=== PATIENT | female | born 1985 | race Caucasian/White ===

== ENCOUNTER → 2018-08-01 17:31 | Outpatient (CLI) | payer OTHER, MEDICAID, SELFPAY | PROVIDERS: Family Provider Family Medicine; PCP Family Medicine; Visit Provider Family Medicine | DX: L02.215 Cutaneous abscess of perineum (principal) | CPT/HCPCS: 87070; 87075; 87077; 87186; 87205 ==

== ENCOUNTER 2018-10-11 08:32 | Emergency (ER) | payer OTHER, MEDICAID, SELFPAY ==
[2018-10-11 08:35] VITALS: BP 138/80; PULSE 90; RESP 18; TEMP 36.9; O2SAT 97; BMI 45.3
--- NOTE | 2018-10-11 09:12 | ED.DIZZY ---
HPI - Dizziness General Chief Complaint: Dizziness Stated Complaint: DEHYDRATION/DIZZINESS/CAN'T EAT Time Seen by Provider: 10/11/18 08:48 Source: patient Mode of arrival: ambulatory Limitations: no limitations History of Present Illness HPI Narrative: 33-year-old female here for evaluation of dizziness. She states that all of her symptoms started on Wednesday. States she did not eat or drink all that much. Things have c continued since then. No headaches. Has not tried anything for symptoms prior to arrival. States it is not a vertigo sensation. She does have a history orthostatic hypotension. Related Data Home Medications Medication Instructions Recorded Confirmed multivitamin capsule 1 cap PO DAILY 07/25/18 10/11/18 ranitidine 75 mg tablet 75 mg PO DAILY PRN tab 08/01/18 10/11/18 lamotrigine [Lamictal] 200 mg PO DAILY 10/11/18 10/11/18 Previous Rx's Medication Instructions Recorded methylphenidate ER 18 mg 18 mg PO QAM #30 tab 09/23/18 tablet,extended release 24 hr Allergies Allergy/AdvReac Type Severity Reaction Status Date / Time amoxicillin [From AUGMENTIN] Allergy Unknown DIARRHEA Verified 10/11/18 08:45 AND STOMACH CRAMPS clavulanic acid Allergy Unknown DIARRHEA Verified 10/11/18 08:45 [From AUGMENTIN] AND STOMACH CRAMPS codeine Allergy Unknown Verified 10/11/18 08:45 cyclobenzaprine Allergy Unknown Verified 10/11/18 08:45 [From FLEXERIL] Review of Systems Constitutional Reports body ache(s), Denies chills, Reports fatigue, Denies frequent falls, Denies headache(s), Reports lethargy, Reports malaise, Reports poor appetite and Reports weakness ENT Ears, Nose, Mouth, and Throat: Denies vertigo, Reports dizziness and Denies headache(s) Cardiovascular Denies chest pain, Denies palpitations and Denies dyspnea Respiratory Denies dyspnea Gastrointestinal Gastrointestinal: Denies abdominal pain, Denies nausea and Denies vomiting Genitourinary Denies dysuria Musculoskeletal Denies myalgias and Denies arthralgias Integumentary/Breasts Denies rash Neurologic Denies behavioral changes, Denies confusion, Denies vertigo, Reports dizziness, Denies frequent falls, Denies headache(s), Denies focal weakness and Reports weakness Psychiatric Denies behavioral changes and Denies confusion Endocrine Reports fatigue and Denies palpitations Hematologic/Lymphatic Denies easy bleeding and Denies easy bruising PFSH Social History Smoking Status: Former smoker Tobacco: How many years used: 2 second hand exposure: No alcohol intake: current substance use type: marijuana Exam Initial Vital Signs Initial Vital Signs: Vital Signs Temperature 98.5 F 10/11/18 08:35 Pulse Rate 90 10/11/18 08:35 Respiratory Rate 18 10/11/18 08:35 Blood Pressure 138/80 10/11/18 08:35 Pulse Oximetry 97 10/11/18 08:35 Const General: cooperative, healthy appearing, comfortable, well developed, well groomed and No acute distress Orientation: alert, awake and oriented x3 HENMT Head: normal to inspection and normocephalic Ears: TM's normal bilaterally Resp Effort & Inspection: normal respiratory effort Auscultation: clear to auscultation bilaterally Cardio Rate: regular rate Rhythm: regular rhythm GI Inspection: non-distended Palpation: soft and No firm Skin Lesions: no lesions Rashes: no rashes Neuro General: alert, awake and oriented x3 Cognition: normal cognition Speech: speech normal Motor: muscle tone normal throughout Sensory Exam: no sensory deficits noted Extrem General: normal to inspection and capillary refill normal Psych Appearance: grossly normal and well kempt Course Orders Ordered: ED Orders 10/11/18 08:46 EKG-12 Lead Routine 10/11/18 09:45 Basic Metabolic Panel Stat Complete Blood Count AUTO DIFF Stat Discontinued Medications Sodium Chloride (Normal Saline 0.9%) 1,000 mls @ 1,000 mls/hr IV BOLUS ONE Stop: 10/11/18 09:47 Last Infusion: 10/11/18 11:26 Dose: 0 mls/hr Admin: 10/11/18 10:15 Dose: 1,000 mls/hr Vital Signs - 8 hr 10/11/18 08:35 10/11/18 10:00 10/11/18 11:00 Temperature 98.5 F Pulse Rate 90 66 67 Respiratory Rate 18 16 17 Blood Pressure 138/80 Blood Pressure [Left Arm] 98/62 95/74 Pulse Oximetry 97 99 99 10/11/18 11:58 Temperature Pulse Rate 77 Respiratory Rate 17 Blood Pressure 120/69 Blood Pressure [Left Arm] Pulse Oximetry 96 MDM - Dizziness Lab Data Attestation: I reviewed the patient's lab results. Result diagrams: 10/11/18 09:45 10/11/18 09:45 Lab Results 10/11/18 10/11/18 Range/Units 09:45 09:45 WBC 5.0 (4.5-11.0) X10^3/uL RBC 5.01 (4.0-5.2) X10^6/uL Hgb 13.8 (12.0-16.0) g/dL Hct 41.9 (36-46) % MCV 83.6 (80-100) fL MCH 27.5 (26-34) PG MCHC 32.9 (30-36) % RDW 13.7 (11.6-14.8) % Plt Count 215 (150-400) X10^3/uL Neut % (Auto) 58.2 (50-75) % Lymph % (Auto) 30.9 (25-40) % [place] % (Auto) 6.9 (3-14) % Eos % (Auto) 3.2 (2-4) % Baso % (Auto) 0.8 (0-2) % Neut # (Auto) 2900 (2047-3669) /uL Lymph # (Auto) 1600 (5373-8317) /uL [place] # (Auto) 300 (0-900) /uL Eos # (Auto) 200 (0-450) /uL Baso # (Auto) 0 (0-100) /uL Sodium 138 (137-145) mmol/L Potassium 3.5 (3.4-5.1) mmol/L Chloride 100 (98-107) mmol/L Carbon Dioxide 28 (22-32) mmol/L BUN 9 (7-17) mg/dL Creatinine 0.70 (0.52-1.04) mg/dL Estimated GFR > 60.0 (>60) mL/min BUN/Creatinine Ratio 12.9 (6-22) Glucose 107 H (70-100) mg/dL Calcium 8.9 (8.4-10.2) mg/dL ECG Data Attestation: I personally reviewed and interpreted this ECG as follows: Prior ECG tracings: not available for review Interpretation: Sinus rhythm Ventricular rate is 70 Occasional PVCs Normal QRS Normal QTC No ST T wave changes MDM Narrative Medical decision making narrative: Patient stated that she felt better after the fluids. Labs are unremarkable. Low suspicion for an emergent process. I do have a suspicion that her symptoms could potentially be residual from the edible marijuana that she had earlier this week. Will hold on further workup for now. Patient was given return precautions. She expressed understanding and agreement with plan. Discharge Plan Departure Patient Disposition: Home Clinical Impression: Lightheadedness Discharge Date/Time: 10/11/18 12:00 Interventions: ED Discharge Assessment Last Done: 10/11/18 11:58 Instructions: DI for Dizziness-Nonvertigo Activity Restrictions/Additional Instructions: Recommend you increase your fluid intake. Continue all of your medications. Return to the emergency department for any new or worsening symptoms Prescriptions: No Action multivitamin capsule 1 cap PO DAILY RF: 0 ranitidine HCl 75 mg tablet 75 mg PO DAILY PRN (Reason: Acid Reflux) RF: 0 methylphenidate HCl [Concerta] 18 mg tablet extended release 24hr 18 mg PO QAM Qty: 30 RF: 0 lamotrigine [Lamictal] 200 mg tablet 200 mg PO DAILY RF: 0 Referrals: Alana Tyler DO [Primary Care Provider] -
[2018-10-11 10:00] VITALS: BP 98/62; PULSE 66; RESP 16; O2SAT 99
[2018-10-11 10:02] LABS: Add Manual Diff / Slide Review NO; Basophils Absolute Auto 0 /uL (0-100); Basophils Percent Auto 0.8 % (0-2); Eosinophils Absolute Auto 200 /uL (0-450); Eosinophils Percent Auto 3.2 % (2-4); Hematocrit 41.9 % (36-46); Hemoglobin 13.8 g/dL (12.0-16.0); Lymphocytes Absolute Auto 1600 /uL (1100-4500); Lymphocytes Percent Auto 30.9 % (25-40); Mean Corpuscular HGB Conc 32.9 % (30-36); Mean Corpuscular Hemoglobin 27.5 PG (26-34); Mean Corpuscular Volume 83.6 fL (80-100); Monocytes Absolute Auto 300 /uL (0-900); Monocytes Percent Auto 6.9 % (3-14); Neutrophils Absolute Auto 2900 /uL (1500-7000); Neutrophils Percent Auto 58.2 % (50-75); Platelet Count 215 X10^3/uL (150-400); Red Blood Cell Count 5.01 X10^6/uL (4.0-5.2); Red Cell Distribution Width 13.7 % (11.6-14.8)
[2018-10-11 10:08] LABS: BUN Creatinine Ratio 12.9 (6-22); Blood Urea Nitrogen 9 mg/dL (7-17); Calcium 8.9 mg/dL (8.4-10.2); Carbon Dioxide 28 mmol/L (22-32); Chloride 100 mmol/L (98-107); Estimated Glomerular Filt Rate > 60.0 mL/min (>60); Glucose 107 mg/dL (70-100); HEMOLYSIS < 15 (0-50); Potassium 3.5 mmol/L (3.4-5.1); Sodium 138 mmol/L (137-145)
[2018-10-11] MEDS: SODIUM CHLORIDE 0.9% 1,000 ML 1000 ML IV (10:15)
[2018-10-11 11:00] VITALS: BP 95/74; PULSE 67; RESP 17; O2SAT 99
--- NOTE | 2018-10-11 11:31 | PC.NURSE ---
Recent viral symptoms including vomiting. Today no symptoms besides dizziness. Reports has not had fluids today and is probably dehydrated.
[2018-10-11 11:58] VITALS: BP 120/69; PULSE 77; RESP 17; O2SAT 96
== END 2018-10-11 12:00 | disposition home or self-care (01) ==
PROVIDERS: Emergency Provider Emergency Medicine; Family Provider Family Medicine; PCP Family Medicine
DX: R42 Dizziness and giddiness (principal)
CPT/HCPCS: 36591; 80048; 85025; 93005; 93010; 96360; 99283; 99284

== ENCOUNTER 2019-01-04 09:35 | Emergency (ER) | payer OTHER, MEDICAID, SELFPAY ==
[2019-01-04 09:45] VITALS: BP 140/77; PULSE 71; RESP 15; TEMP 36.8; O2SAT 100; BMI 41.1
--- NOTE | 2019-01-04 10:21 | ED.DIZZY ---
HPI - Dizziness General Chief Complaint: Dizziness Stated Complaint: Dizzy,Brain Fog, vision is off Time Seen by Provider: 01/04/19 10:04 Source: patient Mode of arrival: ambulatory Limitations: no limitations History of Present Illness HPI Narrative: 33-year-old female comes to the emergency department with complaint of feeling sort of dizzy almost like she might pass out. She states she did not pass out. She sort of felt like she had brain fog and had a little bit of trouble thinking. She states she has had these symptoms in the past as far as the brain fog but this lasted a little bit longer. And that her vision was sort of swimming or sort of like she could see little particles moving. Patient states that her symptoms have been improving. She states that she had them sort of on and off. She denies any fevers. She denies any new neurologic changes otherwise. She denies any chest pain or shortness of breath. She felt nauseated but that has improved, no abdominal pain. She did not vomit. No urinary issues. She typically has loose stools frequently. She states that she did try a grain free diet all last week and started consuming grains again this weekend. She states that she thinks this may have contributed symptoms started when she started eating grains over the weekend but were worse today. She does take Lamictal and Concerta, she takes these for bipolar and ADHD and states symptoms have been well controlled. She has had her tonsils and adenoids removed no other surgeries. She is supposed to see her primary care 130pm today but not for this. 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 Patient has any tobacco or alcohol. Related Data Home Medications Medication Instructions Recorded Confirmed ranitidine 75 mg tablet 75 mg PO DAILY PRN tab 08/01/18 01/04/19 Previous Rx's Medication Instructions Recorded methylphenidate ER 18 mg 18 mg PO QAM #30 tab 12/15/18 tablet,extended release 24 hr lamotrigine 200 mg tablet 200 mg PO DAILY #90 tab 01/03/19 Allergies Allergy/AdvReac Type Severity Reaction Status Date / Time amoxicillin [From AUGMENTIN] Allergy Unknown DIARRHEA Verified 01/04/19 13:27 AND STOMACH CRAMPS clavulanic acid Allergy Unknown DIARRHEA Verified 01/04/19 13:27 [From AUGMENTIN] AND STOMACH CRAMPS codeine Allergy Unknown Verified 05/22/19 13:27 cyclobenzaprine Allergy Unknown Verified 01/04/19 13:27 [From FLEXERIL] Review of Systems Review of Systems ROS Unobtainable: All systems reviewed & are unremarkable except as noted in HPI and below Constitutional Denies chills, Denies fever(s), Reports headache(s) (mild), Denies lethargy and Denies weakness Eyes Reports change in vision (swimming particles) ENT Ears, Nose, Mouth, and Throat: Denies abnormal hearing, Reports dizziness and Reports headache(s) (mild) Cardiovascular Denies chest pain, Denies diaphoresis, Denies syncope, Denies edema, Denies leg edema, Reports lightheadedness, Denies palpitations, Denies dyspnea and Denies dyspnea on exertion Respiratory Denies chest congestion, Denies dyspnea and Denies dyspnea on exertion Gastrointestinal Gastrointestinal: Denies abdominal pain, Denies change in bowel habits, Denies diarrhea, Reports loose stools (chronically), Reports nausea (resolved) and Denies vomiting Genitourinary Reports as per HPI, Denies abnormal menses, Denies hematuria, Denies urinary frequency, Denies flank pain and Denies urinary urgency Musculoskeletal Reports as per HPI, Denies abnormal gait, Denies back pain, Denies muscle weakness, Denies numbness and Denies tingling Neurologic Reports as per HPI, Denies abnormal hearing, Denies abnormal movements, Denies abnormal speech, Denies abnormal gait, Reports dizziness, Denies syncope, Reports headache(s) (mild), Denies focal weakness, Denies memory loss, Denies numbness, Denies tingling and Denies weakness Psychiatric Reports as per HPI and Denies memory loss Endocrine Denies palpitations [facility] Medical History ADD (attention deficit disorder) (Chronic Unknown) Anxiety (Chronic Unknown) Bipolar disorder (Chronic Unknown) Depression (Chronic Unknown) Herpes (Chronic Unknown) Surgical History Hx of tonsillectomy (Resolved) Social History Smoking Status: Former smoker Tobacco: How many years used: 2 second hand exposure: No alcohol intake: current substance use type: marijuana Social History Smoking Status: Former smoker Tobacco: How many years used: 2 second hand exposure: No alcohol intake: current substance use type: marijuana Exam Narrative Exam Narrative: GEN: well nourished, obese, well appearing female, alert and oriented x 3, patient appears to be in no acute distress. HEENT: Atraumatic, pupils are equal round reactive to light, extraocular movements are intact, nares are clear, TMs are clear with no fluid, there is no conjunctival pallor. Throat is clear without any exudates, erythema, tonsillar enlargement or uvular deviation, no facial droop. HEART: Regular rate and rhythm without murmur, clicks, rubs. LUNGS:Lungs clear to auscultation, no wheezes, rales, crackles, chest moves symmetrically ABD:bowel sounds normal, soft, non-tender, no guarding, rebound, rigidity, no masses noted, no hepatosplenomegaly :No CVA tenderness MSCL: Non-tender, no muscle atrophy, muscles strength 5/5 upper and lower extremities, full range of motion, normal gait NEURO:CN 2-12 intact, sensation normal, reflexes 2/4 lower extremities. finger nose finger test normal, heel garrett test normal, romberg normal Initial Vital Signs Initial Vital Signs: Vital Signs Temperature 98.2 F 01/04/19 09:45 Pulse Rate 71 01/04/19 09:45 Respiratory Rate 15 01/04/19 09:45 Blood Pressure 140/77 01/04/19 09:45 Pulse Oximetry 100 01/04/19 09:45 Course Orders Ordered: ED Orders 01/04/19 10:26 EKG-12 Lead Stat 01/04/19 10:35 Urine Microscopic Stat 01/04/19 10:52 Complete Blood Count AUTO DIFF Stat Comprehensive Metabolic Panel Stat Lamotrigine Lamictal Stat Vital Signs - 8 hr 01/04/19 11:29 Pulse Rate 78 Respiratory Rate 17 Blood Pressure [Right Arm] 110/74 Pulse Oximetry 100 MDM - Dizziness Lab Data Attestation: I reviewed the patient's lab results. Result diagrams: 01/04/19 10:52 01/04/19 10:52 Lab Results 01/04/19 01/04/19 01/04/19 Range/Units 10:35 10:52 10:52 WBC 6.1 (4.5-11.0) X10^3/uL RBC 4.96 (4.0-5.2) X10^6/uL Hgb 13.7 (12.0-16.0) g/dL Hct 41.5 (36-46) % MCV 83.7 (80-100) fL MCH 27.5 (26-34) PG MCHC 32.9 (30-36) % RDW 14.2 (11.6-14.8) % Plt Count 249 (150-400) X10^3/uL Neut % (Auto) 57.9 (50-75) % Lymph % (Auto) 32.7 (25-40) % [place] % (Auto) 5.9 (3-14) % Eos % (Auto) 2.7 (2-4) % Baso % (Auto) 0.8 (0-2) % Neut # (Auto) 3500 (5982-5439) /uL Lymph # (Auto) 2000 (4322-7350) /uL [place] # (Auto) 400 (0-900) /uL Eos # (Auto) 200 (0-450) /uL Baso # (Auto) 100 (0-100) /uL Sodium 138 (137-145) mmol/L Potassium 4.1 (3.4-5.1) mmol/L Chloride 102 (98-107) mmol/L Carbon Dioxide 27 (22-32) mmol/L BUN 12 (7-17) mg/dL Creatinine 0.80 (0.52-1.04) mg/dL Estimated GFR > 60.0 (>60) mL/min BUN/Creatinine Ratio 15.0 (6-22) Glucose 94 (70-100) mg/dL Calcium 9.1 (8.4-10.2) mg/dL Total Bilirubin 0.5 (0.2-1.3) mg/dL AST 33 (14-36) IU/L ALT 25 (9-52) IU/L Alkaline Phosphatase 72 (38-126) U/L Total Protein 7.6 (6.3-8.2) g/dL Albumin 4.4 (3.5-5.0) g/dL Globulin 3.2 (1.7-4.1) g/dL Albumin/Globulin Ratio 1.4 (1.0-2.8) Urine RBC 0-1/hpf (0-5/HPF) Urine WBC 0-1/hpf (0-5/HPF) Ur Squamous Epith Cells 1-5 /hpf (0-5/HPF) Urine Bacteria Few (2-10) H (None) Hyaline Casts 0-1/lpf (None) Urine Mucus 1+ H (Negative) Ur Culture Indicated? Cult not indicated Point of Care Testing Test Results Negative Urine Dip Bedside Urine Glucose Negative Bedside Urine Bilirubin + 1 Bedside Urine Ketone ++ 40 Urine Specific [place] 1.030 Bedside Urine Occult Blood - Negative Bedside Urine pH 6 Bedside Urine Protein +/- 15 Bedside Urine Urobilinogen +/- 1mg Bedside Urine Nitrite - Negative Bedside Urine Leukocytes +/- 15 Esterase ECG Data Attestation: I personally reviewed and interpreted this ECG as follows: Prior ECG tracings: available for review Interpretation: Sinus rhythm ventricular rate of 62 P are interval 157 QRS of 107 and QTC of 382. No ST elevation depression. Inverted T-wave in lead [address] changes appreciated. Patient has prior EKG from 10/11/2018 and appears similar MDM Narrative Medical decision making narrative: Patient has short of nonspecific symptoms. She states she is only taking her Lamictal and Concerta currently. She states she has been on the same dose of Lamictal for many years. I did send a Lamictal level but suspect this will not be elevated if she is compliant with her typical medications. Discussed doing some very basic blood work, urine as well as test. There are no acute changes by history that are concerning for emergent cause of her symptoms. She has been seen before for dizziness in the department although she describes her symptoms a little bit differently. Patient ambulated to bathroom without assistance. Discharge Plan Departure Patient Disposition: Home Clinical Impression: Dizziness, Dehydration Discharge Date/Time: 01/04/19 12:15 Interventions: ED Discharge Assessment Last Done: 01/04/19 12:15 Instructions: DI for Dizziness-Nonvertigo Activity Restrictions/Additional Instructions: Follow up with your physician at your appointment. Continue home medications as prescribed. Make sure you are drinking plenty of fluids your urine shows some signs of mild dehydration. Return for fevers greater than 100.4 F, passing out, new chest pain, shortness of breath, loss of vision, inability to move your extremities, speak, persistent vomiting, abdominal pain or other new or concerning symptoms. Prescriptions: No Action ranitidine HCl 75 mg tablet 75 mg PO DAILY PRN (Reason: Acid Reflux) RF: 0 methylphenidate HCl [Concerta] 18 mg tablet extended release 24hr 18 mg PO QAM Qty: 30 RF: 0 lamotrigine [Lamictal] 200 mg tablet 200 mg PO DAILY Qty: 90 RF: 0 Referrals: Alana Tyler DO [Primary Care Provider] - Stand Alone Forms: Work Release Note
--- NOTE | 2019-01-04 10:28 | ED_ITS ---
HPI - Dizziness General Chief Complaint: Dizziness Stated Complaint: Dizzy,Brain Fog, vision is off Time Seen by Provider: 01/04/19 10:04 Source: patient Mode of arrival: ambulatory Limitations: no limitations History of Present Illness HPI Narrative: 33-year-old female comes to the emergency department with complai nt of feeling sort of dizzy almost like she might pass out. She states she did not pass out. She sort of felt like she had brain fog and had a little bit of trouble thinking. She states she has had these symptoms in the past as far as the brain fog but this lasted a little bit longer. And that her vision was sort of swimming or sort of like she could see little particles moving. Patient states that her symptoms have been improving. She states that she had them sort of on and off. She denies any fevers. She denies any new neurologic changes otherwise. She denies any chest pain or shortness of breath. She felt nauseated but that has improved, no abdominal pain. She did not vomit. No urinary issues. She typically has loose stools frequently. She states that she did try a grain free diet all last week and started consuming grains again this weekend. She states that she thinks this may have contributed symptoms started when she started eating grains over the weekend but were worse today. She does take Lamictal and Concerta, she takes these for bipolar and ADHD and states s ymptoms have been well controlled. She has had her tonsils and adenoids removed no other surgeries. She is supposed to see her primary care 130pm today but not for this. 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 Patient has any tobacco or alcohol. Related Data Home Medications Medication Instructions Recorded Confirmed ranitidine 75 mg tablet 75 mg PO DAILY PRN tab 08/01/18 01/04/19 Previous Rx's Medication Instructions Recorded methylphenidate ER 18 mg 18 mg PO QAM #30 tab 12/15/18 tablet,extended release 24 hr lamotrigine 200 mg tablet 200 mg PO DAILY #90 tab 01/03/19 Allergies Allergy/AdvReac Type Severity Reaction Status Date / Time amoxicillin [From AUGMENTIN] Allergy Unknown DIARRHEA Verified 01/04/19 13:27 AND STOMACH CRAMPS clavulanic acid Allergy Unknown DIARRHEA Verified 01/04/19 13:27 [From AUGMENTIN] AND STOMACH CRAMPS codeine Allergy Unknown Verified 01/04/19 13:27 cyclobenzaprine Allergy Unknown Verified 01/04/19 13:27 [From FLEXERIL] Review of Systems Review of Systems ROS Unobtainable: All systems reviewed & are unremarkable except as noted in HPI and below Constitutional Denies chills, Denies fever(s), Reports headache(s) (mild), Denies lethargy and Denies weakness Eyes Reports change in vision (swimming particles) ENT Ears, Nose, Mouth, and Throat: Denies abnormal hearing, Reports dizziness and Reports headache(s) (mild) Cardiovascular Denies chest pain, Denies diaphoresis, Denies syncope, Denies edema, Denies leg edema, Reports lightheadedness, Denies palpitations, Denies dyspnea and Denies dyspnea on exertion Respiratory Denies chest congestion, Denies dyspnea and Denies dyspnea on exertion Gastrointestinal Gastrointestinal: Denies abdominal pain, Denies change in bowel habits, Denies diarrhea, Reports loose stools (chronically), Reports nausea (resolved) and Denies vomiting Genitourinary Reports as per HPI, Denies abnormal menses, Denies hematuria, Denies urinary frequency, Denies flank pain and Denies urinary urgency Musculoskeletal Reports as per HPI, Denies abnormal gait, Denies back pain, Denies muscle w eakness, Denies numbness and Denies tingling Neurologic Reports as per HPI, Denies abnormal hearing, Denies abnormal movements, Denies abnormal speech, Denies abnormal gait, Reports dizziness, Denies syncope, Reports headache(s) (mild), Denies focal weakness, Denies memory loss, Denies numbness, Denies tingling and Denies weakness Psychiatric Reports as per HPI and Denies memory loss Endocrine Denies palpitations [facility] Medical History ADD (attention deficit disorder) (Chronic Unknown) Anxiety (Chronic Unknown) Bipolar disorder (Chronic Unknown) Depression (Chronic Unknown) Herpes (Chronic Unknown) Surgical History Hx of tonsillectomy (Resolved) Social History Smoking Status: Former smoker Tobacco: How many years used: 2 second hand exposure: No alcohol intake: current substance use type: marijuana Social History Smoking Status: Former smoker Tobacco: How many years used: 2 second hand exposure: No alcohol intake: current substance use type: marijuana Exam Narrative Exam Narrative: GEN: well nourished, obese, well appearing female, alert and oriented x 3, patient appears to be in no acute distress. HEENT: Atraumatic, pupils are equal round reactive to light, extraocular movements are intact, nares are clear, TMs are clear with no fluid, there is no conjunctival pallor. Throat is clear without any exudates, erythema, tonsillar enlargement or uvular deviation, no facial droop. HEART: Regular rate and rhythm without murmur, clicks, rubs. LUNGS:Lungs clear to auscultation, no wheezes, rales, crackles, chest moves symmetrically ABD:bowel sounds normal, soft, non-tender, no guarding, rebound, rigidity, no masses noted, no hepatosplenomegaly :No CVA tenderness MSCL: Non-tender, no muscle atrophy, muscles strength 5/5 upper and lower extremities, full range of motion, normal gait NEURO:CN 2-12 intact, sensation normal, reflexes 2/4 lower extremities. finger nose finger test normal, heel garrett test normal, romberg normal Initial Vital Signs Initial Vital Signs: Vital Signs Temperature 98.2 F 01/04/19 09:45 Pulse Rate 71 01/04/19 09:45 Respiratory Rate 15 01/04/19 09:45 Blood Pressure 140/77 01/04/19 09:45 Pulse Oximetry 100 01/04/19 09:45 Course Orders Ordered: ED Orders 01/04/19 10:26 EKG-12 Lead Stat 01/04/19 10:35 Urine Microscopic Stat 01/04/19 10:52 Complete Blood Count AUTO DIFF Stat Comprehensive Metabolic Panel Stat Lamotrigine Lamictal Stat Vital Signs - 8 hr 01/04/19 11:29 Pulse Rate 78 Respiratory Rate 17 Blood Pressure [Right Arm] 110/74 Pulse Oximetry 100 MDM - Dizziness Lab Data Attestation: I reviewed the patient's lab results. Result diagrams: 01/04/19 10:52 01/04/19 10:52 Lab Results 01/04/19 01/04/19 01/04/19 Range/Units 10:35 10:52 10:52 WBC 6.1 (4.5-11.0) X10^3/uL RBC 4.96 (4.0-5.2) X10^6/uL Hgb 13.7 (12.0-16.0) g/dL Hct 41.5 (36-46) % MCV 83.7 (80-100) fL MCH 27.5 (26-34) PG MCHC 32.9 (30-36) % RDW 14.2 (11.6-14.8) % Plt Count 249 (150-400) X10^3/uL Neut % (Auto) 57.9 (50-75) % Lymph % (Auto) 32.7 (25-40) % [place] % (Auto) 5.9 (3-14) % Eos % (Auto) 2.7 (2-4) % Baso % (Auto) 0.8 (0-2) % Neut # (Auto) 3500 (1928-4151) /uL Lymph # (Auto) 2000 (4022-0246) /uL [place] # (Auto) 400 (0-900) /uL Eos # (Auto) 200 (0-450) /uL Baso # (Auto) 100 (0-100) /uL Sodium 138 (137-145) mmol/L Potassium 4.1 (3.4-5.1) mmol/L Chloride 102 (98-107) mmol/L Carbon Dioxide 27 (22-32) mmol/L BUN 12 (7-17) mg/dL Creatinine 0.80 (0.52-1.04) mg/dL Estimated GFR > 60.0 (>60) mL/min BUN/Creatinine Ratio 15.0 (6-22) Glucose 94 (70-100) mg/dL Calcium 9.1 (8.4-10.2) mg/dL Total Bilirubin 0.5 (0.2-1.3) mg/dL AST 33 (14-36) IU/L ALT 25 (9-52) IU/L Alkaline Phosphatase 72 (38-126) U/L Total Protein 7.6 (6.3-8.2) g/dL Albumin 4.4 (3.5-5.0) g/dL Globulin 3.2 (1.7-4.1) g/dL Albumin/Globulin Ratio 1.4 (1.0-2.8) Urine RBC 0-1/hpf (0-5/HPF) Urine WBC 0-1/hpf (0-5/HPF) Ur Squamous Epith Cells 1-5 /hpf (0-5/HPF) Urine Bacteria Few (2-10) H (None) Hyaline Casts 0-1/lpf (None) Urine Mucus 1+ H (Negative) Ur Culture Indicated? Cult not indicated Point of Care Testing Test Results Negative Urine Dip Bedside Urine Glucose Negative Bedside Urine Bilirubin + 1 Bedside Urine Ketone ++ 40 Urine Specific [place] 1.030 Bedside Urine Occult Blood - Negative Bedside Urine pH 6 Bedside Urine Protein +/- 15 Bedside Urine Urobilinogen +/- 1mg Bedside Urine Nitrite - Negative Bedside Urine Leukocytes +/- 15 Esterase ECG Data Attestation: I personally reviewed and interpreted this ECG as follows: Prior ECG tracings: available for review Interpretation: Sinus rhythm ventricular rate of 62 P are interval 157 QRS of 107 and QTC of 382. No ST elevation depression. Inverted T-wave in lead [address] changes appreciated. Patient has prior EKG from 10/11/2018 and appears similar MDM Narrative Medical decision making narrative: Patient has short of nonspecific symptoms. She states she is only taking her Lamictal and Concerta currently. She states she has been on the same dose of Lamictal for many years. I did send a Lamictal level but suspect this will not be elevated if she is compliant with her typical medications. Discussed doing some very basic blood work, urine as well as test. There are no acute changes by history that are concerning for emergent cause of her symptoms. She has been seen before for dizziness in the department although she describes her symptoms a little bit differently. Patient ambulated to bathroom without assistance. Discharge Plan Departure Patient Disposition: Home Clinical Impression: Dizziness, Dehydration Discharge Date/Time: 01/04/19 12:15 Interventions: ED Discharge Assessment Last Done: 01/04/19 12:15 Instructions: DI for Dizziness-Nonvertigo Activity Restrictions/Additional Instructions: Follow up with your physician at your appointment. Continue home medications as prescribed. Make sure you are drinking plenty of fluids your urine shows some signs of mild dehydration. Return for fevers greater than 100.4 F, passing out, new chest pain, shortness of breath, loss of vision, inability to move your extremities, speak, persistent vomiting, abdominal pain or other new or concerning symptoms. Prescriptions: No Action ranitidine HCl 75 mg tablet 75 mg PO DAILY PRN (Reason: Acid Reflux) RF: 0 methylphenidate HCl [Concerta] 18 mg tablet extended release 24hr 18 mg PO QAM Qty: 30 RF: 0 lamotrigine [Lamictal] 200 mg tablet 200 mg PO DAILY Qty: 90 RF: 0 Referrals: Alana Tyler DO [Primary Care Provider] - Stand Alone Forms: Work Release Note
[2019-01-04 10:57] LABS: Bacteria Urine Few (2-10); Culture Indicated Urine Cult Not Indicated; Hyaline Casts Urine 0-1/LPF; Mucus Urine 1+ (Negative); RBC Urine 0-1/HPF (0-5/HPF); Squamous Epithelial Cell Urine 1-5 /HPF (0-5/HPF); WBC Urine 0-1/HPF (0-5/HPF)
[2019-01-04 11:03] LABS: Add Manual Diff / Slide Review NO; Basophils Absolute Auto 100 /uL (0-100); Basophils Percent Auto 0.8 % (0-2); Eosinophils Absolute Auto 200 /uL (0-450); Eosinophils Percent Auto 2.7 % (2-4); Hematocrit 41.5 % (36-46); Hemoglobin 13.7 g/dL (12.0-16.0); Lymphocytes Absolute Auto 2000 /uL (1100-4500); Lymphocytes Percent Auto 32.7 % (25-40); Mean Corpuscular HGB Conc 32.9 % (30-36); Mean Corpuscular Hemoglobin 27.5 PG (26-34); Mean Corpuscular Volume 83.7 fL (80-100); Monocytes Absolute Auto 400 /uL (0-900); Monocytes Percent Auto 5.9 % (3-14); Neutrophils Absolute Auto 3500 /uL (1500-7000); Neutrophils Percent Auto 57.9 % (50-75); Platelet Count 249 X10^3/uL (150-400); Red Blood Cell Count 4.96 X10^6/uL (4.0-5.2); Red Cell Distribution Width 14.2 % (11.6-14.8); White Blood Cell Count 6.1 X10^3/uL (4.5-11.0)
[2019-01-04 11:19] LABS: Alanine Aminotransferase 25 IU/L (9-52); Albumin 4.4 g/dL (3.5-5.0); Albumin Globulin Ratio 1.4 (1.0-2.8); Alkaline Phosphatase 72 U/L (38-126); Aspartate Aminotransferase 33 IU/L (14-36); Bilirubin Total 0.5 mg/dL (0.2-1.3); Blood Urea Nitrogen 12 mg/dL (7-17); Calcium 9.1 mg/dL (8.4-10.2); Carbon Dioxide 27 mmol/L (22-32); Chloride 102 mmol/L (98-107); Estimated Glomerular Filt Rate > 60.0 mL/min (>60); Globulin 3.2 g/dL (1.7-4.1); Glucose 94 mg/dL (70-100); HEMOLYSIS < 15 (0-50); Potassium 4.1 mmol/L (3.4-5.1); Sodium 138 mmol/L (137-145); Total Protein 7.6 g/dL (6.3-8.2)
[2019-01-04 11:29] VITALS: BP 110/74; PULSE 78; RESP 17; O2SAT 100
--- NOTE | 2019-01-04 12:06 | PC.NURSE ---
pt in room states playing solitaire to see if my mind is better
== END 2019-01-04 12:15 | disposition home or self-care (01) ==
PROVIDERS: Emergency Provider Emergency Medicine; Family Provider Family Medicine; PCP Family Medicine
DX: R42 Dizziness and giddiness (principal); E86.0 Dehydration
CPT/HCPCS: 36415; 80053; 80175; 81003; 81015; 81025; 85025; 93005; 93010; 99282; 99284

== ENCOUNTER → 2019-01-04 17:25 | Outpatient (CLI) | payer OTHER, MEDICAID, SELFPAY | PROVIDERS: Family Provider Family Medicine; PCP Family Medicine; Visit Provider Family Medicine ==

== ENCOUNTER → 2019-01-06 15:13 | Outpatient (CLI) | payer OTHER, MEDICAID, SELFPAY ==
[2019-01-06 16:52] LABS: HIV 1 and 2 Antibody NEGATIVE (NEGATIVE)
[2019-01-06 17:48] LABS: Urine N gonorrhoeae NOT DETECTED
[2019-01-08 14:13] LABS: RPR Screen Nonreactive (Nonreactive)
[2019-01-09 15:13] LABS: Hepatitis A Antibody IgM NONREACTIVE (NONREACTIVE); Hepatitis Acute Panel Interp 0.08; Hepatitis B Core Antibody IgM NONREACTIVE (NONREACTIVE); Hepatitis B Surface Antigen NONREACTIVE (NONREACTIVE); Hepatitis C Antibody NONREACTIVE
[2019-01-10 08:57] LABS: Urine Chlamydia DETECTED
== END ==
PROVIDERS: PCP Family Medicine; Visit Provider Family Medicine
DX: B00.9 Herpesviral infection, unspecified (principal); Z20.2 Contact with and (suspected) exposure to infections with a predominantly sexual mode of transmission
CPT/HCPCS: 36415; 80074; 86592; 86703; 87491; 87591

== ENCOUNTER → 2019-01-10 15:29 | Outpatient (CLI) | payer OTHER, MEDICAID, SELFPAY ==
[2019-01-12 13:18] LABS: HSV 1 IgM Screen Negative (Negative); HSV 2 IgM Screen Negative (Negative)
== END ==
PROVIDERS: PCP Family Medicine; Visit Provider Family Medicine
DX: Z11.3 Encounter for screening for infections with a predominantly sexual mode of transmission (principal)
CPT/HCPCS: 86695; 86696

== ENCOUNTER → 2019-02-13 15:06 | Outpatient (CLI) | payer OTHER, MEDICAID, SELFPAY ==
[2019-02-13 17:25] LABS: Urine N gonorrhoeae NOT DETECTED
[2019-02-13 17:47] LABS: Urine Chlamydia NOT DETECTED
== END ==
PROVIDERS: PCP Family Medicine; Visit Provider Family Medicine
DX: A74.9 Chlamydial infection, unspecified (principal)
CPT/HCPCS: 87491; 87591

== ENCOUNTER → 2019-06-27 08:15 | Outpatient (CLI) | payer OTHER, MEDICAID, SELFPAY ==
[2019-06-27 09:47] LABS: Cholesterol 189 mg/dL (140-199); HDL Cholesterol 39 mg/dL (40-60); LDL Cholesterol Calculated 110 mg/dL (<100); Triglycerides 198 mg/dL (35-150)
== END ==
PROVIDERS: PCP Family Medicine; Visit Provider Family Medicine
DX: Z00.00 Encounter for general adult medical examination without abnormal findings (principal); Z13.220 Encounter for screening for lipoid disorders; E78.5 Hyperlipidemia, unspecified
CPT/HCPCS: 36415; 80061

== ENCOUNTER 2019-07-24 08:26 | Emergency (ER) | payer OTHER, MEDICAID, SELFPAY ==
[2019-07-24 08:40] VITALS: BP 131/92; PULSE 87; RESP 18; TEMP 36.9; O2SAT 100; BMI 42.0
--- NOTE | 2019-07-24 09:48 | ED_ITS ---
HPI - Headache General Chief Complaint: Headache Stated Complaint: headache,pressure,nausea,dizzy,don't feel good Time Seen by Provider: 07/24/19 09:39 Source: patient Mode of arrival: Ambulatory Limitations: no limitations History of Present Illness HPI Narrative: Patient is a 34-year-old female who presents with headache and chills which started yesterday. She has not had fever she does have a remote history of migraines but has not had 1 in some time. Her headache has never been quite this bad before. She denies any weakness numbness or tingling. It hurts sometimes to move her neck. No fever no rashes. She feels nauseous she has been vomiting. MD Complaint: headache Onset (ago): day(s) (1) Related Data Home Medications Medication Instructions Recorded Confirmed ranitidine HCl 75 mg tablet 75 mg PO DAILY PRN tab 08/01/18 07/17/19 Previous Rx's Medication Instructions Recorded lamotrigine 200 mg tablet 200 mg PO DAILY #90 tab 04/11/19 fluoxetine 10 mg capsule 10 mg PO DAILY #30 cap 05/30/19 methylphenidate HCl 18 mg 18 mg PO QAM #30 tab 06/26/19 tablet,extended release 24 hr ondansetron 4 mg PO Q8H PRN #10 tab 07/24/19 Allergies Allergy/AdvReac Type Severity Reaction Status Date / Time amoxicillin [From AUGMENTIN] Allergy Unknown DIARRHEA Verified 07/17/19 14:36 AND STOMACH CRAMPS clavulanic acid Allergy Unknown DIARRHEA Verified 07/17/19 14:36 [From AUGMENTIN] AND STOMACH CRAMPS codeine Allergy Unknown Verified 07/17/19 14:36 cyclobenzaprine Allergy Unknown Verified 07/17/19 14:36 [From FLEXERIL] Review of Systems Review of Systems Narrative: GENERAL: Denies chills, fatigue, malaise, fever, sweats, travel HEENT: Denies sinus pain, ear pain, sore throat, difficulty swallowing, neck pain RESPIRATORY: Denies dyspnea, cough, wheezing, hemoptysis, sputum. CARDIOVASCULAR: Denies chest pain, palpitations, orthopnea, edema GASTROINTESTINAL: + nausea : Denies dysuria, frequency, incontinence, hematuria, urinary retention, flank pain. MUSCULOSKELETAL: Denies weakness, joint pain, or bony pain SKIN: No rash, no erythema, no pruritus NEUROLOGIC: +headache PSYCHIATRIC: No concerning psychosocial issues. 12 point review of systems is negative except for those stated above and HPI Patient History Medical History ADD (attention deficit disorder) (Chronic Unknown) Anxiety (Chronic Unknown) Bipolar disorder (Chronic Unknown) Depression (Chronic Unknown) Herpes (Chronic Unknown) Surgical History Hx of tonsillectomy (Resolved) Social History Smoking Status: Former smoker Tobacco: How many years used: 2 second hand exposure: No alcohol intake: current substance use type: marijuana Smoking Status: Former smoker Substance Use Type: marijuana Exam Initial Vital Signs Initial Vital Signs: Vital Signs Temperature 98.5 F 07/24/19 08:40 Pulse Rate 87 07/24/19 08:40 Respiratory Rate 18 07/24/19 08:40 Blood Pressure 131/92 H 07/24/19 08:40 Pulse Oximetry 100 07/24/19 08:40 GENERAL: Appears in pain in dark room, hurts to move HEENT: Head atraumatic,EOMI, pupils reactive, face symmetric NECK: CARDIOVASCULAR: Regular rate and rhythm without murmurs, rubs or gallops. RESPIRATORY: Breath sounds equal bilaterally, no wheezes rales or rhonchi. ABDOMEN: Soft, nontender. Normoactive bowel sounds all 4 quadrants. No guarding or rebound. EXTREMITIES: Normal range of motion, no clubbing or edema. Neurovascularly intact NEUROLOGICAL: Alert and oriented x4.Normal gait and speech. Cranial nerves II through XII grossly intact. Licensed Prosthetist/Orthotist strength equal bilaterally SKIN: Warm, dry, no laceration, no petechiae, no rashes or lesions. Scores NIH Stroke Scale Level of Conciousness: Alert, keenly responsive Ask month/age: Answers both questions correctly. Open/close eyes, close hand: Performs both tasks correctly Best gaze horizontal: Normal Visual hu: No visual loss Facial palsy: Normal symetrical movement Left arm drift: No drift for full 10 sec Right arm drift: No drift for full 10 sec Left leg drift: No drift for full 10 sec Right leg drift: No drift for full 10 sec Limb ataxia: Absent Sensory on face/arms/legs: Normal, no sensory loss Best language: No aphasia, normal Dysarthria: Normal Extinction or inattention: No abnormality Total NIH Stroke scale score: 0 Course Orders Ordered: ED Orders 07/24/19 09:47 CT head/brain wo con Stat 07/24/19 10:30 Complete Blood Count AUTO DIFF Stat Comprehensive Metabolic Panel Stat Discontinued Medications Dexamethasone (Decadron) 10 mg IV NOW ONE Stop: 07/24/19 09:47 Last Admin: 07/24/19 10:38 Dose: 10 mg Documented by: GREG Diphenhydramine HCl (Benadryl) 25 mg IV NOW ONE Stop: 07/24/19 09:47 Last Admin: 07/24/19 10:38 Dose: 25 mg Documented by: GREG Sodium Chloride (Normal Saline 0.9%) 1,000 mls @ 1,000 mls/hr IV BOLUS ONE Stop: 07/24/19 10:45 Last Infusion: 07/24/19 12:16 Dose: 0 mls/hr Documented by: Admin: 07/24/19 10:38 Dose: 1,000 mls/hr Documented by: GREG Ketorolac Tromethamine (Toradol) 30 mg IV NOW ONE Stop: 07/24/19 10:26 Last Admin: 07/24/19 10:38 Dose: 30 mg Documented by: GREG Prochlorperazine (Compazine) 10 mg IV NOW ONE Stop: 07/24/19 09:47 Last Admin: 07/24/19 10:39 Dose: 10 mg Documented by: GREG Vital Signs Vital signs: Vital Signs - 8 hr 07/24/19 10:39 07/24/19 12:00 Pulse Rate 80 80 Respiratory Rate 17 Blood Pressure 138/78 Blood Pressure [Left Arm] 97/65 Pulse Oximetry 96 MDM - Headache Lab Data Attestation: I reviewed the patient's lab results. Result diagrams: 07/24/19 10:30 07/24/19 10:30 Labs: Lab Results 07/24/19 07/24/19 Range/Units 10:30 10:30 WBC 8.9 (4.5-11.0) X10^3/uL RBC 4.93 (4.0-5.2) X10^6/uL Hgb 13.8 (12.0-16.0) g/dL Hct 41.2 (36-46) % MCV 83.6 (80-100) fL MCH 28.0 (26-34) PG MCHC 33.5 (30-36) % RDW 14.4 (11.6-14.8) % Plt Count 283 (150-400) X10^3/uL Neut % (Auto) 75.3 H (50-75) % Lymph % (Auto) 19.9 L (25-40) % [place] % (Auto) 3.1 (3-14) % Eos % (Auto) 0.9 L (2-4) % Baso % (Auto) 0.8 (0-2) % Neut # (Auto) 6700 (2672-0554) /uL Lymph # (Auto) 1800 (9329-7265) /uL [place] # (Auto) 300 (0-900) /uL Eos # (Auto) 100 (0-450) /uL Baso # (Auto) 100 (0-100) /uL Sodium 140 (137-145) mmol/L Potassium 4.1 (3.4-5.1) mmol/L Chloride 102 (98-107) mmol/L Carbon Dioxide 28 (22-32) mmol/L BUN 9 (7-17) mg/dL Creatinine 0.90 (0.52-1.04) mg/dL Estimated GFR > 60.0 (>60) mL/min BUN/Creatinine Ratio 10.0 (6-22) Glucose 123 H (70-100) mg/dL Calcium 9.9 (8.4-10.2) mg/dL Total Bilirubin 0.5 (0.2-1.3) mg/dL AST 26 (14-36) IU/L ALT 21 (<35) IU/L Alkaline Phosphatase 88 (38-126) U/L Total Protein 7.8 (6.3-8.2) g/dL Albumin 4.7 (3.5-5.0) g/dL Globulin 3.1 (1.7-4.1) g/dL Albumin/Globulin Ratio 1.5 (1.0-2.8) Point of Care Testing Test Results Negative Urine Dip Bedside Urine Glucose Negative Bedside Urine Bilirubin - Negative Bedside Urine Ketone +/- 5 Urine Specific [place] 1.015 Bedside Urine Occult Blood - Negative Bedside Urine pH 8.0 Bedside Urine Protein - Negative Bedside Urine Urobilinogen - Negative Bedside Urine Nitrite - Negative Bedside Urine Leukocytes - Negative Esterase Imaging Data CT scan - head: Radiologist's impression: PROCEDURE: CT HEAD/BRAIN WO CON INDICATIONS: worst headache of life TECHNIQUE: Noncontrast 4.5 mm thick angled axial sections acquired from the foramen magnum to the vertex, with coronal and sagittal reformats. For radiation dose reduction, the following was used: automated exposure control, adjustment of mA and/or kV according to patient size. COMPARISON: None. FINDINGS: Image quality: Excellent. CSF spaces: Basal cisterns are patent. No extra-axial fluid collections. Ventricles are normal in size and shape. Brain: No midline shift. No intracranial masses or hemorrhage. Benítez-white matter interface is normal. Skull and face: Calvarium and visualized facial bones are intact, without suspicious lesions. Sinuses: Visualized sinuses and mastoids are clear except for a smoothly marginated mucous retention cyst involving the right sphenoid sinus. IMPRESSION: No brain parenchymal abnormality is found. Mucous retention cyst right sphenoid sinus. Dictated by: Anthony Morton M.D. on 07/24/2019 at 10:17 MDM Narrative Medical decision making narrative: The patient overall is feeling much better after Toradol Compazine and Benadryl. Head CT is negative, afebrile no leukocytosis she also has no infectious signs or symptoms. At time symptoms consistent with migraine like headache is history of migraines. She is requesting nausea medications home with. I discussed all findings with the patient and mother, Education has been performed regarding treatment plan, diagnosis, warning signs and symptoms and all concerns have been addressed. Verbally agree with and understood all of the above. Discharge Plan Departure Patient Disposition: Home Clinical Impression: Migraine Qualifiers: Migraine type: unspecified Status migrainosus presence: without status migrainosus Intractability: not intractable Qualified Code(s): G43.909 - Migraine, unspecified, not intractable, without status migrainosus Discharge Date/Time: 07/24/19 12:44 Instructions: DI for Migraine Activity Restrictions/Additional Instructions: *You have been diagnosed with migraine headache *What to do: Head CT and blood work today are reassuring. Recommend getting some sleep and rest increasing fluid intake *Continue to take medications as directed *Follow up with your primary care provider in 2-3 days *Return to ER if you should have persistent worsening headache fevers sweats chills or any new, worsening or concerning symptoms Prescriptions: New ondansetron 4 mg tablet,disintegrating 4 mg PO Q8H PRN (Reason: nausea and vomiting) Qty: 10 RF: 0 No Action ranitidine HCl 75 mg tablet 75 mg PO DAILY PRN (Reason: Acid Reflux) RF: 0 lamotrigine [Lamictal] 200 mg tablet 200 mg PO DAILY Qty: 90 RF: 0 methylphenidate HCl [Concerta] 18 mg tablet extended release 24hr 18 mg PO QAM Qty: 30 RF: 0 fluoxetine [Prozac] 10 mg capsule 10 mg PO DAILY Qty: 30 RF: 2 Referrals: Alana Tyler DO [Primary Care Provider] - Stand Alone Forms: Work Release Note
[2019-07-24 10:38] LABS: Add Manual Diff / Slide Review NO; Basophils Absolute Auto 100 /uL (0-100); Basophils Percent Auto 0.8 % (0-2); Eosinophils Absolute Auto 100 /uL (0-450); Eosinophils Percent Auto 0.9 % (2-4); Hematocrit 41.2 % (36-46); Hemoglobin 13.8 g/dL (12.0-16.0); Lymphocytes Absolute Auto 1800 /uL (1100-4500); Lymphocytes Percent Auto 19.9 % (25-40); Mean Corpuscular HGB Conc 33.5 % (30-36); Mean Corpuscular Volume 83.6 fL (80-100); Monocytes Absolute Auto 300 /uL (0-900); Monocytes Percent Auto 3.1 % (3-14); Neutrophils Absolute Auto 6700 /uL (1500-7000); Neutrophils Percent Auto 75.3 % (50-75); Platelet Count 283 X10^3/uL (150-400); Red Blood Cell Count 4.93 X10^6/uL (4.0-5.2); Red Cell Distribution Width 14.4 % (11.6-14.8); White Blood Cell Count 8.9 X10^3/uL (4.5-11.0)
[2019-07-24] MEDS: KETOROLAC 60 MG/2 ML VIAL 30 MG IV (10:38)
[2019-07-24] MEDS: DEXAMETHASONE 10 MG/ML VIAL IV (10:38)
[2019-07-24] MEDS: SODIUM CHLORIDE 0.9% 1,000 ML 1000 ML IV (10:38)
[2019-07-24] MEDS: diphenhydrAMINE 50 MG/ML VIAL 25 MG IV (10:38)
[2019-07-24 10:39] VITALS: BP 138/78; PULSE 80
[2019-07-24] MEDS: PROCHLORPERAZINE 10 MG/2 ML VIAL IV (10:39)
[2019-07-24 10:49] LABS: Alanine Aminotransferase 21 IU/L (<35); Albumin 4.7 g/dL (3.5-5.0); Albumin Globulin Ratio 1.5 (1.0-2.8); Alkaline Phosphatase 88 U/L (38-126); Aspartate Aminotransferase 26 IU/L (14-36); Bilirubin Total 0.5 mg/dL (0.2-1.3); Blood Urea Nitrogen 9 mg/dL (7-17); Calcium 9.9 mg/dL (8.4-10.2); Carbon Dioxide 28 mmol/L (22-32); Chloride 102 mmol/L (98-107); Estimated Glomerular Filt Rate > 60.0 mL/min (>60); Globulin 3.1 g/dL (1.7-4.1); Glucose 123 mg/dL (70-100); HEMOLYSIS < 15 (0-50); Potassium 4.1 mmol/L (3.4-5.1); Sodium 140 mmol/L (137-145); Total Protein 7.8 g/dL (6.3-8.2)
[2019-07-24 12:00] VITALS: BP 97/65; PULSE 80; RESP 17; O2SAT 96
== END 2019-07-24 12:44 | disposition home or self-care (01) ==
PROVIDERS: Emergency Provider Emergency Medicine; PCP Family Medicine
DX: G43.909 Migraine, unspecified, not intractable, without status migrainosus (principal)
CPT/HCPCS: 36415; 70450; 80053; 81003; 81025; 85025; 96361; 96374; 96375; 99283; 99284; J0780; J1100; J1200; J1885

== ENCOUNTER 2019-07-29 12:07 | Emergency (ER) | payer OTHER, MEDICAID, SELFPAY ==
[2019-07-29 12:11] VITALS: BP 120/89; PULSE 72; RESP 16; O2SAT 100; BMI 40.2
[2019-07-29 12:36] VITALS: TEMP 36.6
[2019-07-29 13:11] LABS: Add Manual Diff / Slide Review NO; Basophils Absolute Auto 100 /uL (0-100); Eosinophils Absolute Auto 200 /uL (0-450); Eosinophils Percent Auto 2.5 % (2-4); Hematocrit 43.7 % (36-46); Hemoglobin 14.8 g/dL (12.0-16.0); Lymphocytes Absolute Auto 2800 /uL (1100-4500); Mean Corpuscular HGB Conc 33.9 % (30-36); Mean Corpuscular Hemoglobin 28.5 PG (26-34); Mean Corpuscular Volume 83.9 fL (80-100); Monocytes Absolute Auto 400 /uL (0-900); Monocytes Percent Auto 5.1 % (3-14); Neutrophils Absolute Auto 4400 /uL (1500-7000); Neutrophils Percent Auto 55.4 % (50-75); Platelet Count 284 X10^3/uL (150-400); Red Blood Cell Count 5.21 X10^6/uL (4.0-5.2); Red Cell Distribution Width 14.3 % (11.6-14.8); White Blood Cell Count 7.9 X10^3/uL (4.5-11.0)
[2019-07-29] MEDS: SODIUM CHLORIDE 0.9% 1,000 ML 1000 ML IV (13:15)
[2019-07-29 13:17] LABS: INR 1.1 (0.9-1.3); Prothrombin Time 12.5 SECONDS (10.1-12.7)
[2019-07-29 13:22] LABS: Alanine Aminotransferase 15 IU/L (<35); Albumin 4.8 g/dL (3.5-5.0); Albumin Globulin Ratio 1.5 (1.0-2.8); Alkaline Phosphatase 85 U/L (38-126); Aspartate Aminotransferase 20 IU/L (14-36); Bilirubin Total 0.9 mg/dL (0.2-1.3); Blood Urea Nitrogen 13 mg/dL (7-17); Calcium 9.6 mg/dL (8.4-10.2); Carbon Dioxide 30 mmol/L (22-32); Chloride 98 mmol/L (98-107); Creatine Kinase 30 U/L (30-135); Estimated Glomerular Filt Rate > 60.0 mL/min (>60); Globulin 3.1 g/dL (1.7-4.1); Glucose 91 mg/dL (70-100); HEMOLYSIS < 15 (0-50); Potassium 4.2 mmol/L (3.4-5.1); Sodium 139 mmol/L (137-145); Total Protein 7.9 g/dL (6.3-8.2)
[2019-07-29 13:33] VITALS: BP 105/75; PULSE 72; RESP 18; O2SAT 98
[2019-07-29 13:33] LABS: Troponin I < 0.012 ng/mL (0.01-0.034)
[2019-07-29 13:42] LABS: Influenza A - CEPHEID Flu A NEGATIVE (NEGATIVE); Influenza B - CEPHEID Flu B NEGATIVE (NEGATIVE)
[2019-07-29 14:11] VITALS: BP 112/70; BP 124/98; BP 131/97; PULSE 76; PULSE 81; PULSE 85
--- NOTE | 2019-07-29 14:56 | ED.DIZZY ---
HPI - Dizziness <SOHAIL Burger - Last Filed: 07/29/19 20:22> General Chief Complaint: Dizziness Stated Complaint: Feels light headed Time Seen by Provider: 07/29/19 12:27 Source: patient Mode of arrival: Ambulatory Limitations: no limitations History of Present Illness HPI Narrative: The patient is a 34-year-old female former smoker with history of migraine, depression who presents with a chief complaint of continued dizziness. She states she was seen at this facility for migraine and treated with medications. She had a CT scan that came back normal at that time. She then some Dr. Wilde on 07/26, saw her PCP Dr. Tyler yesterday 07 28. She states that she is supposed to see a headache specialist and her PCP is doing that referral. She states that her daughter has the flu. She complains of dizziness, no spinning, states that she is generally fatigued. She denies any chest pain shortness of breath, abdominal pain, nausea vomiting or diarrhea. She denies any confusion or focal dizziness. She states she does have a history of orthostatic hypotension. Related Data Home Medications Medication Instructions Recorded Confirmed ranitidine HCl 75 mg tablet 75 mg PO DAILY PRN tab 08/01/18 07/28/19 Previous Rx's Medication Instructions Recorded fluoxetine 10 mg capsule 10 mg PO DAILY #30 cap 05/30/19 ondansetron 4 mg PO Q8H PRN #10 tab 07/24/19 sumatriptan succinate 100 mg tablet See Rx Instructions PO .COMPLEX 07/26/19 #10 tab trazodone 50 mg tablet 50 mg PO BEDTIME #30 tab 07/26/19 lamotrigine 200 mg tablet 200 mg PO DAILY #90 tab 07/27/19 methylphenidate HCl 18 mg 18 mg PO QAM #30 tab 07/27/19 tablet,extended release 24 hr Allergies Allergy/AdvReac Type Severity Reaction Status Date / Time amoxicillin [From AUGMENTIN] Allergy Unknown DIARRHEA Verified 07/29/19 12:30 AND STOMACH CRAMPS clavulanic acid Allergy Unknown DIARRHEA Verified 07/29/19 12:30 [From AUGMENTIN] AND STOMACH CRAMPS codeine Allergy Unknown Verified 07/29/19 12:30 cyclobenzaprine Allergy Unknown Verified 07/29/19 12:30 [From FLEXERIL] Review of Systems <SOHAIL Burger - Last Filed: 07/29/19 20:22> Review of Systems Narrative: GENERAL: Denies chills, fatigue, malaise, fever, sweats. HEENT: Denies sinus pain, ear pain, sore throat, difficulty swallowing, dizziness. RESPIRATORY: Denies dyspnea, cough, wheezing, hemoptysis, sputum. CARDIOVASCULAR: Denies chest pain, palpitations, orthopnea, edema, GASTROINTESTINAL: Denies nausea, vomiting, abdominal pain, diarrhea, constipation, melena. : Denies dysuria, frequency, incontinence, hematuria, urinary retention. MUSCULOSKELETAL: denies weakness, joint pain, or bony pain SKIN: Denies rash, skin lesions, or other NEUROLOGIC: See HPI PSYCHIATRIC: No concerning psychosocial issues. 12 point review of systems is negative except for those stated above Patient History <SOHAIL Burger - Last Filed: 07/29/19 20:22> Medical History ADD (attention deficit disorder) (Chronic Unknown) Anxiety (Chronic Unknown) Bipolar disorder (Chronic Unknown) Depression (Chronic Unknown) Herpes (Chronic Unknown) Surgical History Hx of tonsillectomy (Resolved) Social History Smoking Status: Former smoker Tobacco: How many years used: 2 second hand exposure: No alcohol intake: current substance use type: marijuana Smoking Status: Former smoker Substance Use Type: marijuana Exam <SOHAIL Burger - Last Filed: 07/29/19 20:22> Narrative Exam Narrative: GENERAL: This is a well-nourished, well-developed patient, in acute distress HEAD: Atraumatic. Normocephalic. No temporal or scalp tenderness. EYES: Pupils equal round and reactive. Extraocular motions intact. No scleral icterus. No injection or drainage. ENT: Nose without bleeding, purulent drainage or septal hematoma. Throat without erythema, tonsillar hypertrophy or exudate. Uvula midline. Airway patent. NECK: Trachea midline. No JVD or lymphadenopathy. Supple, nontender, no meningeal signs. CARDIOVASCULAR: Regular rate and rhythm without murmurs, gallops, or rubs. RESPIRATORY: Clear to auscultation. Breath sounds equal bilaterally. No wheezes, rales, or rhonchi. No cough. No increased respiratory effort. No accessory muscle use. GASTROINTESTINAL: Abdomen soft, non-tender, nondistended. No hepato-splenomegaly, or palpable masses. No guarding. EXTREMITIES: No clubbing, cyanosis, or edema. No joint tenderness, effusion, or edema noted. BACK: Nontender without deformity or crepitance. No flank tenderness. NEURO: AOx3. Strength is equal upper and lower extremities bilaterally. Stable gait. No gross cranial nerve deficit clear speech. SKIN: No rash or erythema visible skin Initial Vital Signs Initial Vital Signs: Vital Signs Pulse Rate 72 07/29/19 12:11 Respiratory Rate 16 07/29/19 12:11 Blood Pressure 120/89 07/29/19 12:11 Pulse Oximetry 100 07/29/19 12:11 <Soumya Cruz MD - Last Filed: 07/30/19 17:45> Initial Vital Signs Initial Vital Signs: Vital Signs Pulse Rate 72 07/29/19 12:11 Respiratory Rate 16 07/29/19 12:11 Blood Pressure 120/89 07/29/19 12:11 Pulse Oximetry 100 07/29/19 12:11 Course <SOHAIL Burger - Last Filed: 07/29/19 20:22> Orders Ordered: Discontinued Medications Sodium Chloride (Normal Saline 0.9%) 1,000 mls @ 1,000 mls/hr IV BOLUS ONE Stop: 07/29/19 13:36 Last Infusion: 07/29/19 15:13 Dose: 0 mls/hr Documented by: Admin: 07/29/19 13:15 Dose: 1,000 mls/hr Documented by: MAGED Vital Signs Vital signs: Vital Signs - 8 hr 07/29/19 12:36 07/29/19 13:33 07/29/19 14:11 Temperature 98 F Pulse Rate 72 Pulse Rate [Orthostatic Lying] 76 Pulse Rate [Orthostatic Sitting] 85 Pulse Rate [Orthostatic Standing] 81 Respiratory Rate 18 Blood Pressure [Left Arm] 105/75 Blood Pressure [Orthostatic Lying] 112/70 Blood Pressure [Orthostatic Sitting] 131/97 H Blood Pressure [Orthostatic Standing] 124/98 H Pulse Oximetry 98 <Soumya Cruz MD - Last Filed: 07/30/19 17:45> Orders Ordered: Discontinued Medications Sodium Chloride (Normal Saline 0.9%) 1,000 mls @ 1,000 mls/hr IV BOLUS ONE Stop: 07/29/19 13:36 Last Infusion: 07/29/19 15:13 Dose: 0 mls/hr Documented by: Admin: 07/29/19 13:15 Dose: 1,000 mls/hr Documented by: MAGED Vital Signs Vital signs: Vital Signs - 8 hr 07/29/19 12:36 07/29/19 13:33 07/29/19 14:11 Temperature 98 F Pulse Rate 72 Pulse Rate [Orthostatic Lying] 76 Pulse Rate [Orthostatic Sitting] 85 Pulse Rate [Orthostatic Standing] 81 Respiratory Rate 18 Blood Pressure [Left Arm] 105/75 Blood Pressure [Orthostatic Lying] 112/70 Blood Pressure [Orthostatic Sitting] 131/97 H Blood Pressure [Orthostatic Standing] 124/98 H Pulse Oximetry 98 MDM - Dizziness <SOHAIL Burger - Last Filed: 07/29/19 20:22> Lab Data Result diagrams: 07/29/19 13:00 07/29/19 13:00 Labs: Lab Results 07/29/19 07/29/19 07/29/19 Range/Units 13:00 13:00 13:00 WBC 7.9 (4.5-11.0) X10^3/uL RBC 5.21 H (4.0-5.2) X10^6/uL Hgb 14.8 (12.0-16.0) g/dL Hct 43.7 (36-46) % MCV 83.9 (80-100) fL MCH 28.5 (26-34) PG MCHC 33.9 (30-36) % RDW 14.3 (11.6-14.8) % Plt Count 284 (150-400) X10^3/uL Neut % (Auto) 55.4 (50-75) % Lymph % (Auto) 36.0 (25-40) % [place] % (Auto) 5.1 (3-14) % Eos % (Auto) 2.5 (2-4) % Baso % (Auto) 1.0 (0-2) % Neut # (Auto) 4400 (1097-5201) /uL Lymph # (Auto) 2800 (1208-0521) /uL [place] # (Auto) 400 (0-900) /uL Eos # (Auto) 200 (0-450) /uL Baso # (Auto) 100 (0-100) /uL PT 12.5 (10.1-12.7) SECONDS INR 1.1 (0.9-1.3) Sodium 139 (137-145) mmol/L Potassium 4.2 (3.4-5.1) mmol/L Chloride 98 (98-107) mmol/L Carbon Dioxide 30 (22-32) mmol/L BUN 13 (7-17) mg/dL Creatinine 1.00 (0.52-1.04) mg/dL Estimated GFR > 60.0 (>60) mL/min BUN/Creatinine Ratio 13.0 (6-22) Glucose 91 (70-100) mg/dL Calcium 9.6 (8.4-10.2) mg/dL Total Bilirubin 0.9 (0.2-1.3) mg/dL AST 20 (14-36) IU/L ALT 15 (<35) IU/L Alkaline Phosphatase 85 (38-126) U/L Total Creatine Kinase 30 (30-135) U/L CK-MB (CK-2) TNP CK-MB (CK-2) Rel Index TNP Troponin I < 0.012 (0.01-0.034) ng/mL Total Protein 7.9 (6.3-8.2) g/dL Albumin 4.8 (3.5-5.0) g/dL Globulin 3.1 (1.7-4.1) g/dL Albumin/Globulin Ratio 1.5 (1.0-2.8) Influenza A (RT-PCR) (NEGATIVE) Influenza B (RT-PCR) (NEGATIVE) 07/29/19 Range/Units 13:00 WBC (4.5-11.0) X10^3/uL RBC (4.0-5.2) X10^6/uL Hgb (12.0-16.0) g/dL Hct (36-46) % MCV (80-100) fL MCH (26-34) PG MCHC (30-36) % RDW (11.6-14.8) % Plt Count (150-400) X10^3/uL Neut % (Auto) (50-75) % Lymph % (Auto) (25-40) % [place]range % (Auto) (3-14) % Eos % (Auto) (2-4) % Baso % (Auto) (0-2) % Neut # (Auto) (4279-9098) /uL Lymph # (Auto) (2197-9368) /uL [place] # (Auto) (0-900) /uL Eos # (Auto) (0-450) /uL Baso # (Auto) (0-100) /uL PT (10.1-12.7) SECONDS INR (0.9-1.3) Sodium (137-145) mmol/L Potassium (3.4-5.1) mmol/L Chloride (98-107) mmol/L Carbon Dioxide (22-32) mmol/L BUN (7-17) mg/dL Creatinine (0.52-1.04) mg/dL Estimated GFR (>60) mL/min BUN/Creatinine Ratio (6-22) Glucose (70-100) mg/dL Calcium (8.4-10.2) mg/dL Total Bilirubin (0.2-1.3) mg/dL AST (14-36) IU/L ALT (<35) IU/L Alkaline Phosphatase (38-126) U/L Total Creatine Kinase (30-135) U/L CK-MB (CK-2) CK-MB (CK-2) Rel Index Troponin I (0.01-0.034) ng/mL Total Protein (6.3-8.2) g/dL Albumin (3.5-5.0) g/dL Globulin (1.7-4.1) g/dL Albumin/Globulin Ratio (1.0-2.8) Influenza A (RT-PCR) Flu a negative (NEGATIVE) Influenza B (RT-PCR) Flu b negative (NEGATIVE) Point of Care Testing Test Results Negative Urine Dip Bedside Urine Glucose Negative Bedside Urine Bilirubin - Negative Bedside Urine Ketone + 15 Urine Specific [place]air 1.010 Bedside Urine Occult Blood - Negative Bedside Urine pH 7.5 Bedside Urine Protein +/- 15 Bedside Urine Urobilinogen 1+ 2mg Bedside Urine Nitrite - Negative Bedside Urine Leukocytes - Negative Esterase ECG Data Attestation: I personally reviewed and interpreted this ECG as follows: Interpretation: Sinus rhythm. Ventricular rate 60. No ST elevation or depression. No ectopy noted. P.r. interval 156. QRS duration 101. Viewed by Dr Anthony MENDOZA Narrative Medical decision making narrative: The patient is a 34-year-old female with history of migraine orthostatic hypotension who presents with a chief complaint of dizziness. Her lab work came back grossly within normal limits. Her EKG shows no acute abnormalities. Of note the patient had a negative head CT other this week and is seen her PCP 2 days this week. She received 1 L of fluid, had normal orthostatics vitals and then stated she felt much better and wanted to leave the emergency department. I discussed at length return precautions including acute confusion, repeat dizziness, syncope etcetera. Patient has no questions or concerns upon discharge and states understanding of return precautions as well as follow-up care. She has been hemodynamically stable throughout her stay in the emergency department. <Soumya Cruz MD - Last Filed: 07/30/19 17:45> Lab Data Labs: Lab Results 07/29/19 07/29/19 07/29/19 Range/Units 13:00 13:00 13:00 WBC 7.9 (4.5-11.0) X10^3/uL RBC 5.21 H (4.0-5.2) X10^6/uL Hgb 14.8 (12.0-16.0) g/dL Hct 43.7 (36-46) % MCV 83.9 (80-100) fL MCH 28.5 (26-34) PG MCHC 33.9 (30-36) % RDW 14.3 (11.6-14.8) % Plt Count 284 (150-400) X10^3/uL Neut % (Auto) 55.4 (50-75) % Lymph % (Auto) 36.0 (25-40) % Lagrange % (Auto) 5.1 (3-14) % Eos % (Auto) 2.5 (2-4) % Baso % (Auto) 1.0 (0-2) % Neut # (Auto) 4400 (0326-5454) /uL Lymph # (Auto) 2800 (1095-3948) /uL [place] # (Auto) 400 (0-900) /uL Eos # (Auto) 200 (0-450) /uL Baso # (Auto) 100 (0-100) /uL PT 12.5 (10.1-12.7) SECONDS INR 1.1 (0.9-1.3) Sodium 139 (137-145) mmol/L Potassium 4.2 (3.4-5.1) mmol/L Chloride 98 (98-107) mmol/L Carbon Dioxide 30 (22-32) mmol/L BUN 13 (7-17) mg/dL Creatinine 1.00 (0.52-1.04) mg/dL Estimated GFR > 60.0 (>60) mL/min BUN/Creatinine Ratio 13.0 (6-22) Glucose 91 (70-100) mg/dL Calcium 9.6 (8.4-10.2) mg/dL Total Bilirubin 0.9 (0.2-1.3) mg/dL AST 20 (14-36) IU/L ALT 15 (<35) IU/L Alkaline Phosphatase 85 (38-126) U/L Total Creatine Kinase 30 (30-135) U/L CK-MB (CK-2) TNP CK-MB (CK-2) Rel Index TNP Troponin I < 0.012 (0.01-0.034) ng/mL Total Protein 7.9 (6.3-8.2) g/dL Albumin 4.8 (3.5-5.0) g/dL Globulin 3.1 (1.7-4.1) g/dL Albumin/Globulin Ratio 1.5 (1.0-2.8) Influenza A (RT-PCR) (NEGATIVE) Influenza B (RT-PCR) (NEGATIVE) 07/29/19 Range/Units 13:00 WBC (4.5-11.0) X10^3/uL RBC (4.0-5.2) X10^6/uL Hgb (12.0-16.0) g/dL Hct (36-46) % MCV (80-100) fL MCH (26-34) PG MCHC (30-36) % RDW (11.6-14.8) % Plt Count (150-400) X10^3/uL Neut % (Auto) (50-75) % Lymph % (Auto) (25-40) % Lagrange % (Auto) (3-14) % Eos % (Auto) (2-4) % Baso % (Auto) (0-2) % Neut # (Auto) (1513-1123) /uL Lymph # (Auto) (3901-7680) /uL [place] # (Auto) (0-900) /uL Eos # (Auto) (0-450) /uL Baso # (Auto) (0-100) /uL PT (10.1-12.7) SECONDS INR (0.9-1.3) Sodium (137-145) mmol/L Potassium (3.4-5.1) mmol/L Chloride (98-107) mmol/L Carbon Dioxide (22-32) mmol/L BUN (7-17) mg/dL Creatinine (0.52-1.04) mg/dL Estimated GFR (>60) mL/min BUN/Creatinine Ratio (6-22) Glucose (70-100) mg/dL Calcium (8.4-10.2) mg/dL Total Bilirubin (0.2-1.3) mg/dL AST (14-36) IU/L ALT (<35) IU/L Alkaline Phosphatase (38-126) U/L Total Creatine Kinase (30-135) U/L CK-MB (CK-2) CK-MB (CK-2) Rel Index Troponin I (0.01-0.034) ng/mL Total Protein (6.3-8.2) g/dL Albumin (3.5-5.0) g/dL Globulin (1.7-4.1) g/dL Albumin/Globulin Ratio (1.0-2.8) Influenza A (RT-PCR) Flu a negative (NEGATIVE) Influenza B (RT-PCR) Flu b negative (NEGATIVE) Point of Care Testing Test Results Negative Urine Dip Bedside Urine Glucose Negative Bedside Urine Bilirubin - Negative Bedside Urine Ketone + 15 Urine Specific [place] 1.010 Bedside Urine Occult Blood - Negative Bedside Urine pH 7.5 Bedside Urine Protein +/- 15 Bedside Urine Urobilinogen 1+ 2mg Bedside Urine Nitrite - Negative Bedside Urine Leukocytes - Negative Esterase Discharge Plan Departure Patient Disposition: Home Clinical Impression: Dizziness, Persistent headaches Discharge Date/Time: 07/29/19 15:13 Instructions: DI for Dehydration -- Adult, DI for Dizziness-Nonvertigo Activity Restrictions/Additional Instructions: Today your lab work came back normal. You felt much improved and requested to go home after 1 L fluid. Please follow-up with primary care provider in the next few days Please come back to the emergency department for any acute concerns Prescriptions: No Action ranitidine HCl 75 mg tablet 75 mg PO DAILY PRN (Reason: Acid Reflux) RF: 0 lamotrigine [Lamictal] 200 mg tablet 200 mg PO DAILY Qty: 90 RF: 0 methylphenidate HCl [Concerta] 18 mg tablet extended release 24hr 18 mg PO QAM Qty: 30 RF: 0 trazodone 50 mg tablet 50 mg PO BEDTIME Qty: 30 RF: 1 sumatriptan succinate 100 mg tablet See Rx Instructions PO .COMPLEX Qty: 10 RF: 1 fluoxetine [Prozac] 10 mg capsule 10 mg PO DAILY Qty: 30 RF: 2 ondansetron 4 mg tablet,disintegrating 4 mg PO Q8H PRN (Reason: nausea and vomiting) Qty: 10 RF: 0 Referrals: Alana Tyler DO [Primary Care Provider] -
== END 2019-07-29 15:13 | disposition home or self-care (01) ==
PROVIDERS: Emergency Provider Nurse Practitioner Family; PCP Family Medicine
DX: R42 Dizziness and giddiness (principal); R51 Headache
CPT/HCPCS: 36415; 80053; 81003; 81025; 82550; 84484; 85025; 85610; 87502; 93005; 93010; 96360; 96361; 99284

== ENCOUNTER 2020-08-19 10:01 | Emergency (ER) | payer OTHER, MEDICAID, SELFPAY ==
--- NOTE | 2020-08-19 10:09 | ED.SOB ---
HPI - SOB/Dyspnea General Chief Complaint: Upper Respiratory Symptoms Stated Complaint: Hard time breathing and a cough Time Seen by Provider: 08/19/20 10:09 Source: patient Mode of arrival: Ambulatory Limitations: no limitations History of Present Illness HPI Narrative: This is a 35-year-old female who comes to the emergency department with complaint of shortness of breath and cough. Patient has been afebrile. She has had a nonproductive cough. She denies any chest pain or pressure. No nausea, no vomiting. No other GI or urinary symptoms. No swelling in her extremities. Patient states she has had some reactive airway/asthma after being infected with swine flu remotely. Her symptoms all resolved after she stopped smoking hookah. And she has not had problems since. She does have known, depression, bipolar and ADD. Related Data Home Medications Medication Instructions Recorded Confirmed acetaminophen 500 mg tablet 500 mg PO BID PRN tab 06/12/20 07/16/20 turmeric 400 mg capsule mg PO 06/12/20 07/16/20 Previous Rx's Medication Instructions Recorded lamotrigine 200 mg tablet 200 mg PO DAILY #90 tab 10/17/19 naproxen 500 mg tablet 500 mg PO BID #60 tab 06/12/20 methylphenidate HCl 18 mg 18 mg PO DAILY #30 tab 07/16/20 tablet,extended release 24 hr methylphenidate HCl 18 mg 18 mg PO DAILY #30 tab 07/16/20 tablet,extended release 24 hr methylphenidate HCl 18 mg 18 mg PO DAILY #30 tab 07/16/20 tablet,extended release 24 hr fluoxetine 20 mg capsule 20 mg PO DAILY #90 cap 08/15/20 albuterol sulfate 1 inh INHALATION Q4-6H PRN #1 ea 08/19/20 Allergies Allergy/AdvReac Type Severity Reaction Status Date / Time amoxicillin [From AUGMENTIN] Allergy Unknown DIARRHEA Verified 08/19/20 10:14 AND STOMACH CRAMPS clavulanic acid Allergy Unknown DIARRHEA Verified 08/19/20 10:14 [From AUGMENTIN] AND STOMACH CRAMPS codeine Allergy Unknown Verified 08/19/20 10:14 cyclobenzaprine Allergy Unknown Verified 08/19/20 10:14 [From FLEXERIL] Review of Systems Review of Systems ROS Unobtainable: All systems reviewed & are unremarkable except as noted in HPI and below Patient History Medical History ADD (attention deficit disorder) (Unknown) Anxiety (Unknown) Bipolar disorder (Unknown) Bipolar disorder Cyst Depression (Unknown) Encounter for long-term current use of medication Herpes (Unknown) Large breasts Strain of neck muscle URI (upper respiratory infection) Surgical History Hx of tonsillectomy Social History Smoking Status: Former smoker Tobacco: How many years used: 2 second hand exposure: No alcohol intake: current substance use type: marijuana Smoking Status: Former smoker Substance Use Type: marijuana Exam Narrative Exam Narrative: GEN: well nourished, well appearing female, alert and oriented x 3, patient appears to be in mild distress. HEENT: Atraumatic, pupils are equal round reactive to light, extraocular movements are intact, nares are clear. HEART: Regular rate and rhythm without murmur, clicks, rubs. No carotid bruits, pulses are equal in upper and lower extremities LUNGS:Lungs clear to auscultation, no wheezes, rales, crackles, chest moves symmetrically, no tachypnea, no accessory muscle use. ABD:bowel sounds normal, soft, non-tender, no guarding, rebound, rigidity, no masses noted, no hepatosplenomegaly MSCL: Non-tender, no muscle atrophy, muscles strength 5/5 upper and lower extremities, full range of motion, normal gait NEURO:CN 2-12 intact, sensation normal Initial Vital Signs Initial Vital Signs: Vital Signs Temperature 98.6 F 08/19/20 10:12 Pulse Rate 81 08/19/20 10:12 Respiratory Rate 18 08/19/20 10:12 Blood Pressure 104/59 L 08/19/20 10:12 Pulse Oximetry 99 08/19/20 10:12 Scores PERC Score Age greater than or equal to 50 years: No Heart rate greater than or equal to 100 bpm: No Room Air O2 Sat less than 95%: No Unilateral leg swelling: No Recent trauma or surgery: No Hemoptysis: No Prior PE or DVT: No Hormone Use: No Total PERC Score: 0 Course Orders Ordered: ED Orders 08/19/20 10:12 COVID19 Stat 08/19/20 10:22 XR chest 1V Stat Discontinued Medications Albuterol (Albuterol Hfa Mdi 60 Puff/8 Gm Inhaler) 2 puff INH NOW ONE Stop: 08/19/20 11:31 Last Admin: 08/19/20 11:22 Dose: 2 puff Documented by: DONALD Reevaluation(s) Reevaluation #1: Reviewed patient's swab, chest x-ray. No wheezing at this time but she has required inhalers in the past and does not have 1. Discussed trying some puffs of albuterol here with spacer and teaching and take this home. Patient feels comfortable with this plan. Patient states she is typically low on her blood pressure hypotension is not atypical for her. Time: 11:02 Vital Signs Vital signs: Vital Signs - 8 hr 08/19/20 10:59 08/19/20 11:00 08/19/20 11:01 Pulse Rate 71 69 71 Respiratory Rate 16 Blood Pressure 93/58 L Pulse Oximetry 97 96 97 08/19/20 11:22 08/19/20 11:30 Pulse Rate 92 H 70 Respiratory Rate 14 Blood Pressure 100/61 Pulse Oximetry 100 100 MDM - SOB/Dyspnea Lab Data Labs: Lab Results 08/19/20 Range/Units 10:12 SARS-CoV-2 (PCR) Negative (Negative) Imaging Data Chest x-ray: Radiologist's Impression: [address] [id number] ReportSigned Patient: Carisa Miller DMR#: [id number]: [id number]:[id number]/Sex: 35 / FDate of Service: 08/19/20Loc: EDAccession Number: [id number] Procedure: XR chest 1V Ordering Provider: Anny Sandhu D.O. PROCEDURE: XR CHEST 1V INDICATIONS: sob, cough, ? covid TECHNIQUE: One view of the chest was acquired. COMPARISON: [facility] , CHEST 2 VIEW, 05/01/2017, 12:06. FINDINGS: Surgical changes and devices: None. Lungs and pleura: On this semiupright portable chest examination, no large pneumothorax or large pleural effusions are seen. No focal infiltrates are seen. Low lung volumes are noted. This causes a crowded appearance to the lung markings and limits evaluation. Mediastinum: Mediastinal contours appear normal. Heart size is normal. Bones and chest wall: No suspicious bony lesions. Overlying soft tissues appear unremarkable. IMPRESSION: Portable chest within normal limits, without focal infiltrates. Dictated by: Odilon Gaitan M.D. on 08/19/2020 at 9:48 Approved by: Odilon Gaitan M.D. on 08/19/2020 at 9:48 Discharge Plan Departure Patient Disposition: Home Clinical Impression: Cough Instructions: Cough Activity Restrictions/Additional Instructions: Follow-up with her physician in the next week if your not having improvement of your symptoms. You may use albuterol 1-2 puffs every 4 hours as needed for any wheezing or tightness in your chest. If you find it helpful you may take Claritin or similar [id number] antihistamine once daily. Return to the emergency department for fevers, worsening shortness of breath, chest pain, lightheadedness or passing out, persistent vomiting, black or bloody stools, new swelling in your extremities or other new or concerning symptoms. Prescriptions: New albuterol sulfate 90 mcg/actuation aerosol powdr breath activated 1 inh inhalation Q4-6H PRN (Reason: shortness of breath or wheezing) Qty: 1 RF: 0 No Action fluoxetine 20 mg capsule 20 mg PO DAILY Qty: 90 RF: 1 lamotrigine 200 mg tablet 200 mg PO DAILY Qty: 90 RF: 1 methylphenidate HCl 18 mg tablet extended release 24hr 18 mg PO DAILY Qty: 30 RF: 0 methylphenidate HCl 18 mg tablet extended release 24hr 18 mg PO DAILY Qty: 30 RF: 0 methylphenidate HCl 18 mg tablet extended release 24hr 18 mg PO DAILY Qty: 30 RF: 0 turmeric 400 mg capsule PO RF: 0 acetaminophen [Tylenol Extra Strength] 500 mg tablet 500 mg PO BID PRNRF: 0 naproxen 500 mg tablet 500 mg PO BID Qty: 60 RF: 0 Referrals: Carlota Peace ARNP [Primary Care Provider] -
[2020-08-19 10:12] VITALS: BP 104/59; PULSE 81; RESP 18; TEMP 37; O2SAT 99
--- NOTE | 2020-08-19 10:22 | DI.RAD.S_ITS ---
PROCEDURE: XR CHEST 1V INDICATIONS: sob, cough, ? covid TECHNIQUE: One view of the chest was acquired. COMPARISON: [facility], , CHEST 2 VIEW, 05/01/2017, 12:06. FINDINGS: Surgical changes and devices: None. Lungs and pleura: On this semiupright portable chest examination, no large pneumothorax or large pleural effusions are seen. No focal infiltrates are seen. Low lung volumes are noted. This causes a crowded appearance to the lung markings and limits evaluation. Mediastinum: Mediastinal contours appear normal. Heart size is normal. Bones and chest wall: No suspicious bony lesions. Overlying soft tissues appear unremarkable. IMPRESSION: Portable chest within normal limits, without focal infiltrates. Dictated by: Odilon Gaitan M.D. on 08/19/2020 at 9:48 Approved by: Odilon Gaitan M.D. on 08/19/2020 at 9:48
[2020-08-19 10:44] LABS: COVID19 -Nasal RAPID Negative (Negative)
[2020-08-19 10:59] VITALS: PULSE 71; O2SAT 97
[2020-08-19 11:00] VITALS: PULSE 69; O2SAT 96
[2020-08-19 11:01] VITALS: BP 93/58; PULSE 71; RESP 16; O2SAT 97
[2020-08-19 11:22] VITALS: PULSE 92; RESP 14; O2SAT 100
[2020-08-19] MEDS: ALBUTEROL HFA MDI 60 PUFF/8 GM INHALER INH (11:22)
[2020-08-19 11:30] VITALS: BP 100/61; PULSE 70; O2SAT 100
== END 2020-08-19 12:04 | disposition home or self-care (01) ==
PROVIDERS: Emergency Provider Emergency Medicine; PCP Nurse Practitioner Family
DX: R05 Cough (principal); Z20.822 Contact with and (suspected) exposure to COVID-19; F31.9 Bipolar disorder, unspecified; F90.9 Attention-deficit hyperactivity disorder, unspecified type
CPT/HCPCS: 71045; 87635; 94640; 99283; A9270

== ENCOUNTER 2020-10-29 09:11 | Emergency (ER) | payer OTHER, MEDICAID, SELFPAY ==
[2020-10-29 09:21] VITALS: BP 126/69; PULSE 87; RESP 15; TEMP 35.9; O2SAT 98; BMI 47.2
--- NOTE | 2020-10-29 09:30 | ED.EXTPRO ---
HPI - Extremity Problem General Chief complaint: Extremity Injury, Lower Stated complaint: ankle sprain right Time Seen by Provider: 10/29/20 09:21 Source: patient Mode of arrival: Wheelchair Limitations: no limitations History of Present Illness HPI Narrative: Patient is a 35-year-old female with history of fibromyalgia, bipolar, ADHD presenting with right ankle pain. She says she was walking with tennis shoes when her ankle suddenly rolled laterally. She did not trip or fall no other injury. She initially had some mild knee tenderness but that is gone. He is unable to ambulate. She is able to flex and extend the ankle but has some tenderness over the bilateral malleoli. Complaint: extremity pain Onset (ago): minute(s) Pain Consistency: constant Location: right and lower extremity (Ankle) Related Data Home Medications Medication Instructions Recorded Confirmed naproxen 500 mg tablet 500 mg PO BID PRN tab 10/08/20 10/23/20 Previous Rx's Medication Instructions Recorded methylphenidate HCl 18 mg 18 mg PO DAILY #30 tab 07/16/20 tablet,extended release 24 hr fluoxetine 20 mg capsule 20 mg PO DAILY #90 cap 08/15/20 lidocaine 5 % topical patch 1 patch TOPICAL DAILY PRN #15 ea 09/18/20 methocarbamol 750 mg tablet 750 mg PO TID PRN #20 tab 10/08/20 lamotrigine 200 mg tablet 200 mg PO DAILY #30 tab 10/22/20 Allergies Allergy/AdvReac Type Severity Reaction Status Date / Time amoxicillin [From AUGMENTIN] Allergy Unknown DIARRHEA Verified 10/29/20 09:26 AND STOMACH CRAMPS clavulanic acid Allergy Unknown DIARRHEA Verified 10/29/20 09:26 [From AUGMENTIN] AND STOMACH CRAMPS codeine Allergy Unknown Verified 10/29/20 09:26 cyclobenzaprine Allergy Unknown Verified 10/29/20 09:26 [From FLEXERIL] Review of Systems Review of Systems Narrative: GENERAL: Denies chills,fever HEENT: Denies throat pain RESPIRATORY: Denies dyspnea, cough, wheezing CARDIOVASCULAR: Denies chest pain, palpitations GASTROINTESTINAL: Denies nausea, vomiting MUSCULOSKELETAL: See HPI SKIN: No rash, no laceration, no pruritus NEUROLOGIC: Denies weakness, dizziness, headache, numbness 8 point review of systems is negative except for those stated above and HPI Patient History Medical History Acute thoracic back pain ADD (attention deficit disorder) (Unknown) Anxiety (Unknown) Bipolar disorder (Unknown) Bipolar disorder Class 3 obesity Cyst Depression (Unknown) Encounter for long-term current use of medication Evaluation regarding contraception options Herpes (Unknown) Large breasts Mid back pain Strain of neck muscle URI (upper respiratory infection) Surgical History Hx of tonsillectomy Social History Smoking Status: Former smoker Tobacco: How many years used: 2 second hand exposure: No alcohol intake: current substance use type: marijuana Smoking Status: Former smoker alcohol intake frequency: 0-2 drinks per day Substance Use Type: marijuana Exam Initial Vital Signs Initial Vital Signs: Vital Signs Temperature 96.6 F L 10/29/20 09:21 Pulse Rate 87 10/29/20 09:21 Respiratory Rate 15 10/29/20 09:21 Blood Pressure 126/69 10/29/20 09:21 Pulse Oximetry 98 10/29/20 09:21 GENERAL: Overweight pleasant 35-year-old female no acute distress CARDIOVASCULAR: peripheral pulses in tact, cap refill <2 sec RESPIRATORY: No respiratory distress, speaks in full sentences without difficulty EXTREMITIES: Normal range of motion, no clubbing or edema. Neurovascularly intact Right lower extremity minimal tenderness laterally no obvious swelling but has no potting midfoot or laterally Achilles tendon is intact distal pedal pulses intact. No fibular head pain knee is within normal limits and stable NEUROLOGICAL: Cranial nerves II through XII grossly intact. Normal gait and speech. SKIN: Warm, dry, no petechiae, no rashes or lesions. Course Orders Ordered: ED Orders 10/29/20 09:32 XR ankle RT min 3V Stat Vital Signs Vital signs: Vital Signs - 8 hr 10/29/20 09:21 Temperature 96.6 F L Pulse Rate 87 Respiratory Rate 15 Blood Pressure 126/69 Pulse Oximetry 98 MDM - Extremity (Nontraumatic) Imaging Data Extremity x-ray #1: Radiologist's Impression: PROCEDURE: XR ANKLE RT MIN 3V INDICATIONS: pain TECHNIQUE: 3 views of the ankle were acquired. COMPARISON: None. FINDINGS: Bones: No fracture. Plantar calcaneal spur. Soft tissues: No tibiotalar joint effusion. Achilles tendon appears normal. IMPRESSION: Plantar calcaneal spur. Dictated by: Frdedie Campo M.D. on 10/29/2020 at 10:00 Discharge Plan Departure Patient Disposition: Home Clinical Impression: Right ankle sprain Qualifiers: Encounter type: initial encounter Involved ligament of ankle: other ligament Qualified Code(s): S93.491A - Sprain of other ligament of right ankle, initial encounter Instructions: Ankle Sprain Activity Restrictions/Additional Instructions: *You have been diagnosed with right ankle sprain *What to do: Increase activity as tolerated may weightbear as tolerated. Elevate, ice 20-30 minutes at a time. You were noted to have a heel spur on her x-ray which is likely causing some of your related pain in the middle of your foot. *Continue to take medications as directed Continue naproxen as directed may take 500 mg every 12 hours if needed *Follow up with your primary care provider in 2-3 days *Return to ER if you should have increasing pain or any new, worsening or concerning symptoms Prescriptions: No Action lidocaine 5 % adhesive patch,medicated 1 patch topical DAILY PRN (Reason: pain) Qty: 15 RF: 0 fluoxetine 20 mg capsule 20 mg PO DAILY Qty: 90 RF: 1 lamotrigine 200 mg tablet 200 mg PO DAILY Qty: 30 RF: 0 naproxen 500 mg tablet 500 mg PO BID PRNRF: 0 methocarbamol [Robaxin-750] 750 mg tablet 750 mg PO TID PRN (Reason: pain) Qty: 20 RF: 0 methylphenidate HCl 18 mg tablet extended release 24hr 18 mg PO DAILY Qty: 30 RF: 0 Referrals: Carlota Peace ARNP [Primary Care Provider] -
[2020-10-29 10:36] VITALS: BP 138/78; PULSE 82; RESP 15; O2SAT 99
== END 2020-10-29 10:37 | disposition home or self-care (01) ==
PROVIDERS: Emergency Provider Emergency Medicine; PCP Nurse Practitioner Family
DX: S93.491A Sprain of other ligament of right ankle, initial encounter (principal); X50.1XXA Overexertion from prolonged static or awkward postures, initial encounter
CPT/HCPCS: 73610; 99283

== ENCOUNTER → 2020-11-06 15:20 | Outpatient (CLI) | payer OTHER, MEDICAID, SELFPAY ==
[2020-11-06 15:49] LABS: Hematocrit 39.5 % (36-46); Hemoglobin 13.1 g/dL (12.0-16.0); Mean Corpuscular HGB Conc 33.2 % (30-36); Mean Corpuscular Hemoglobin 27.6 PG (26-34); Mean Corpuscular Volume 82.9 fL (80-100); Platelet Count 310 X10^3/uL (150-400); Red Blood Cell Count 4.76 X10^6/uL (4.0-5.2); Red Cell Distribution Width 14.2 % (11.6-14.8); White Blood Cell Count 9.4 X10^3/uL (4.5-11.0)
[2020-11-06 17:13] LABS: Alanine Aminotransferase 14 IU/L (<35); Albumin 4.5 g/dL (3.5-5.0); Albumin Globulin Ratio 1.4 (1.0-2.8); Alkaline Phosphatase 85 U/L (38-126); Aspartate Aminotransferase 23 IU/L (14-36); BUN Creatinine Ratio 21.3 (6-22); Bilirubin Total 0.2 mg/dL (0.2-1.3); Blood Urea Nitrogen 16 mg/dL (7-17); Calcium 9.7 mg/dL (8.4-10.2); Carbon Dioxide 26 mmol/L (22-32); Chloride 105 mmol/L (98-107); Estimated Glomerular Filt Rate > 60.0 mL/min (>60); Globulin 3.2 g/dL (1.7-4.1); Glucose 94 mg/dL (70-100); HEMOLYSIS < 15 (0-50); Potassium 3.9 mmol/L (3.4-5.1); Sodium 141 mmol/L (137-145); Total Protein 7.7 g/dL (6.3-8.2)
[2020-11-06 17:31] LABS: Free T3, Triiodothyronine Free 3.36 pg/mL (2.77-5.27); Free T4, Direct Thyroxine 0.89 ng/dL (0.78-2.19)
[2020-11-06 17:45] LABS: Thyroid Stimulating Hormone 2.01 uIU/mL (0.47-4.68)
[2020-11-08 13:52] LABS: Lamotrigine Lamictal 3.8 ug/mL (2.0-20.0)
== END ==
PROVIDERS: Nurse Practitioner; PCP Nurse Practitioner Family; Referring Provider Nurse Practitioner Family; Visit Provider Nurse Practitioner Family
DX: E66.9 Obesity, unspecified (principal); E78.5 Hyperlipidemia, unspecified; F32.9 Major depressive disorder, single episode, unspecified; R53.83 Other fatigue; Z79.899 Other long term (current) drug therapy; Z51.81 Encounter for therapeutic drug level monitoring
CPT/HCPCS: 36415; 80053; 80175; 84439; 84443; 84481; 85027

== ENCOUNTER → 2020-12-25 10:04 | Outpatient (CLI) | payer OTHER, MEDICAID, SELFPAY ==
--- NOTE | 2020-12-25 10:08 | DI.RAD.S_ITS ---
PROCEDURE: XR WRIST RT MIN 3V INDICATIONS: pain TECHNIQUE: 4 views of the wrist were acquired. COMPARISON: None. FINDINGS: Bones: No fractures or dislocations. No suspicious bony lesions. Scaphoid view: No trauma to the scaphoid. Soft tissues: No suspicious soft tissue calcifications. IMPRESSION: No trauma found. Dictated by: Anthony Morton M.D. on 12/25/2020 at 10:25 Approved by: Anthony Morton M.D. on 12/25/2020 at 10:27
== END ==
PROVIDERS: PCP Nurse Practitioner Family; Referring Provider Physician Assistant; Visit Provider Physician Assistant
DX: M25.531 Pain in right wrist (principal)
CPT/HCPCS: 73110

== ENCOUNTER 2021-03-18 10:22 | Emergency (ER) | payer OTHER, MEDICAID, SELFPAY ==
[2021-03-18 10:27] VITALS: BP 104/58; PULSE 74; RESP 18; TEMP 35.9; O2SAT 98; BMI 43.9
[2021-03-18 10:57] LABS: COVID19 -Nasal RAPID Negative (Negative)
--- NOTE | 2021-03-18 12:00 | ED.URI ---
HPI - URI/Sore Throat General Chief Complaint: Upper Respiratory Symptoms Stated Complaint: covid symptoms- close contact Time Seen by Provider: 03/18/21 12:00 Source: patient Mode of arrival: Ambulatory Limitations: no limitations History of Present Illness HPI Narrative: This is a 35-year-old female comes with complaint of nasal congestion, mild cough, a little bit of sore throat for the past several days. Patient states she found out she had a closed COVID exposure last Wednesday. Patient states she came to get tested as she has a daughter who is immune compromise in works with the elderly at the [employer]. Patient has been afebrile. She denies any productive cough. She denies any chest pain or shortness of breath. She denies any nausea or vomiting. No other GI or urinary symptoms. Patient states she takes medications for bipolar disorder but no other medical history. She denies denies any other concerns at this time. Related Data Home Medications Medication Instructions Recorded Confirmed naproxen 500 mg tablet 500 mg PO BID PRN tab 10/08/20 03/05/21 Previous Rx's Medication Instructions Recorded fluoxetine 20 mg capsule 20 mg PO DAILY #90 cap 08/15/20 lamotrigine 200 mg tablet 200 mg PO DAILY #90 tab 11/20/20 Allergies Allergy/AdvReac Type Severity Reaction Status Date / Time amoxicillin [From AUGMENTIN] Allergy Unknown DIARRHEA Verified 03/18/21 10:31 AND STOMACH CRAMPS clavulanic acid Allergy Unknown DIARRHEA Verified 03/18/21 10:31 [From AUGMENTIN] AND STOMACH CRAMPS codeine Allergy Unknown Verified 03/18/21 10:31 cyclobenzaprine Allergy Unknown Verified 03/18/21 10:31 [From FLEXERIL] Review of Systems Review of Systems ROS Unobtainable: All systems reviewed & are unremarkable except as noted in HPI and below Patient History Medical History Acute thoracic back pain ADD (attention deficit disorder) (Unknown) Anxiety (Unknown) Bipolar disorder (Unknown) Bipolar disorder Class 3 obesity Cyst Depression (Unknown) Encounter for long-term current use of medication Evaluation regarding contraception options Food sensitivity with gastrointestinal symptoms Herpes (Unknown) Large breasts Mid back pain Strain of neck muscle URI (upper respiratory infection) Surgical History Hx of tonsillectomy Family History Family/Other Hypertension Dementia Father Loud snoring Mother Loud snoring Sleep apnea Restless leg Obesity Hypertension Depression Anxiety Bipolar disorder Alcohol abuse Family/Other Depression Anxiety Bipolar disorder Social History Smoking Status: Former smoker Tobacco: How many years used: 2 second hand exposure: No alcohol intake: current substance use type: marijuana Smoking Status: Former smoker alcohol intake frequency: 0-2 drinks per day Substance Use Type: marijuana Exam Narrative Exam Narrative: GEN: well nourished, well appearing female, alert and oriented x 3, patient appears to be in mild distress. HEENT: Atraumatic, pupils are equal round reactive to light, extraocular movements are intact, nares patient has some mild nasal congestion, TMs are clear with no fluid, there is no conjunctival pallor. Throat is clear without any exudates, erythema, tonsillar enlargement or uvular deviation HEART: Regular rate and rhythm without murmur, clicks, rubs. LUNGS:Lungs clear to auscultation, no wheezes, rales, crackles, chest moves symmetrically ABD:bowel sounds normal, soft, non-tender, no guarding, rebound, rigidity, no masses noted, no hepatosplenomegaly MSCL: full range of motion, normal gait NEURO:CN 2-12 intact, sensation normal SKIN: No rash or skin changes. Initial Vital Signs Initial Vital Signs: Vital Signs Temperature 96.7 F L 03/18/21 10:27 Pulse Rate 74 03/18/21 10:27 Respiratory Rate 18 03/18/21 10:27 Blood Pressure 104/58 L 03/18/21 10:27 Pulse Oximetry 98 03/18/21 10:27 Course Orders Ordered: ED Orders 03/18/21 10:32 COVID19 -Nasal swab/Pre-Proc Stat Vital Signs Vital signs: Vital Signs - 8 hr 03/18/21 10:27 Temperature 96.7 F L Pulse Rate 74 Respiratory Rate 18 Blood Pressure 104/58 L Pulse Oximetry 98 MDM - URI/Sore Throat Lab Data Labs: Lab Results 03/18/21 Range/Units 10:32 SARS-CoV-2 (PCR) Negative (Negative) Discharge Plan Departure Patient Disposition: Home Clinical Impression: URI (upper respiratory infection) Instructions: DI for Viral Upper Respiratory Infection -- Adult Activity Restrictions/Additional Instructions: Follow-up with your having any new or concerning symptoms. COVID testing today is negative. Please return for fevers that are persistent, new chest pain, shortness of breath, lightheadedness or passing out, persistent vomiting or other new or concerning symptoms. Prescriptions: No Action fluoxetine 20 mg capsule 20 mg PO DAILY Qty: 90 RF: 1 lamotrigine 200 mg tablet 200 mg PO DAILY Qty: 90 RF: 1 naproxen 500 mg tablet 500 mg PO BID PRNRF: 0 Referrals: Carlota Peace ARNP [Primary Care Provider] - Stand Alone Forms: Work Release Note
== END 2021-03-18 12:14 | disposition home or self-care (01) ==
PROVIDERS: Emergency Provider Emergency Medicine; PCP Nurse Practitioner Family
DX: J06.9 Acute upper respiratory infection, unspecified (principal); J02.9 Acute pharyngitis, unspecified; Z20.822 Contact with and (suspected) exposure to COVID-19
CPT/HCPCS: 87635; 99281; 99282; C9803

== ENCOUNTER → 2021-03-25 09:47 | Outpatient (CLI) | payer OTHER, MEDICAID, SELFPAY ==
[2021-03-25 10:19] LABS: COVID19 -Nasal RAPID Negative (Negative)
== END ==
PROVIDERS: PCP Nurse Practitioner Family; Referring Provider Nurse Practitioner; Visit Provider Nurse Practitioner
DX: J02.9 Acute pharyngitis, unspecified (principal); R09.81 Nasal congestion; Z20.822 Contact with and (suspected) exposure to COVID-19
CPT/HCPCS: 87635

== ENCOUNTER 2021-05-01 18:20 | Emergency (ER) | payer OTHER, MEDICAID, SELFPAY ==
[2021-05-01 18:22] VITALS: BP 108/74; PULSE 98; RESP 12; TEMP 36.2; O2SAT 97; BMI 42.4
--- NOTE | 2021-05-01 18:31 | DI.RAD.S_ITS ---
PROCEDURE: XR CHEST 2V INDICATIONS: asthma attack, chest pain TECHNIQUE: 2 views of the chest were acquired. COMPARISON: [facility], [facility], XR CHEST 1V, 08/19/2020, 10:27. [facility], [facility], CHEST 2 VIEW, 05/01/2017, 12:06. FINDINGS: Surgical changes and devices: None. Lungs and pleura: Mildly prominent pulmonary markings bilaterally. No pleural effusions or pneumothorax. Mediastinum: Mediastinal contours are normal. Heart size is normal. Bones and chest wall: No suspicious bony abnormalities. Soft tissues appear unremarkable. IMPRESSION: Mildly prominent pulmonary markings bilaterally. This could be seen in reactive airways disease atypical pneumonia, or artifactual due to low lung volumes. Dictated by: Bj Crocker M.D. on 05/01/2021 at 18:10 Approved by: Bj Crocker M.D. on 05/01/2021 at 18:12
--- NOTE | 2021-05-01 18:37 | ED.SOB ---
HPI - SOB/Dyspnea General Chief Complaint: Upper Respiratory Symptoms Stated Complaint: Asthma, Something Going on in Chest Time Seen by Provider: 05/01/21 18:33 Source: patient Mode of arrival: Ambulatory History of Present Illness HPI Narrative: 36-year-old female former smoker with history of asthma presents with upwards of 1 week of increasing shortness of breath, wheezing and hacking cough. She denies the production in any significant sputum. She has had no fever or chills. She denies nausea or vomiting. She denies any travel, use of control or history of blood clot. She denies any obvious exposure to persons known or suspected to have COVID Related Data Home Medications Medication Instructions Recorded Confirmed naproxen 500 mg tablet 500 mg PO BID PRN tab 10/08/20 04/23/21 Previous Rx's Medication Instructions Recorded lamotrigine 200 mg tablet 200 mg PO DAILY #90 tab 11/20/20 fluoxetine 20 mg capsule 20 mg PO DAILY #90 cap 04/01/21 LDN See Rx Instructions .ROUTE 04/10/21 .COMPLEX #90 caplet valacyclovir 1 gram tablet 1,000 mg PO BID 10 Days #20 tab 04/23/21 albuterol sulfate 90 mcg/actuation 2 puff INHALATION Q6H PRN #8.5 g 04/29/21 aerosol inhaler azithromycin 250 mg tablet See Rx Instructions .ROUTE 05/01/21 .COMPLEX #6 tab benzonatate 100 mg capsule 100 mg PO TID PRN #14 cap 05/01/21 ([facility] [place]) Allergies Allergy/AdvReac Type Severity Reaction Status Date / Time amoxicillin [From AUGMENTIN] Allergy Unknown DIARRHEA Verified 05/01/21 18:26 AND STOMACH CRAMPS clavulanic acid Allergy Unknown DIARRHEA Verified 05/01/21 18:26 [From AUGMENTIN] AND STOMACH CRAMPS codeine Allergy Unknown Verified 05/01/21 18:26 cyclobenzaprine Allergy Unknown Verified 05/01/21 18:26 [From FLEXERIL] Review of Systems Review of Systems Narrative: GENERAL: Denies chills, fatigue, malaise, fever, sweats. HEENT: Denies sinus pain, ear pain, sore throat, difficulty swallowing, dizziness. RESPIRATORY: Denies dyspnea, cough, wheezing, hemoptysis, sputum. CARDIOVASCULAR: Denies chest pain, palpitations, orthopnea, edema, GASTROINTESTINAL: Denies nausea, vomiting, abdominal pain, diarrhea, constipation, melena. : Denies dysuria, frequency, incontinence, hematuria, urinary retention. MUSCULOSKELETAL: denies weakness, joint pain, or bony pain SKIN: Denies rash, skin lesions, or other NEUROLOGIC: Denies weakness, headache, numbness, change in speech, confusion, seizures, incoordination. PSYCHIATRIC: No concerning psychosocial issues. 12 point review of systems is negative except for those stated above Patient History Medical History Acute thoracic back pain ADD (attention deficit disorder) (Unknown) Anxiety (Unknown) Bipolar disorder (Unknown) Bipolar disorder Class 3 obesity Cyst Depression (Unknown) Encounter for long-term current use of medication Evaluation regarding contraception options Food sensitivity with gastrointestinal symptoms Herpes (Unknown) Large breasts Mid back pain Strain of neck muscle URI (upper respiratory infection) Surgical History Hx of tonsillectomy Family History Family/Other Hypertension Dementia Father Loud snoring Mother Loud snoring Sleep apnea Restless leg Obesity Hypertension Depression Anxiety Bipolar disorder Alcohol abuse Family/Other Depression Anxiety Bipolar disorder Social History Smoking Status: Former smoker Tobacco: How many years used: 2 second hand exposure: No alcohol intake: current substance use type: marijuana Smoking Status: Former smoker alcohol intake frequency: 0-2 drinks per day Substance Use Type: marijuana Exam Narrative Exam Narrative: GENERAL: [36 year old patient appears stated age. Well-developed patient, in mild distress. HEAD: Atraumatic. Normocephalic. EYES: Pupils equal round and reactive. Extraocular motions intact. No scleral icterus. No injection or drainage. ENT: Nose without bleeding, purulent drainage. Throat without erythema, tonsillar hypertrophy or exudate. Airway patent. NECK: Trachea midline. Non tender CARDIOVASCULAR: Regular rate and rhythm without murmurs, gallops, or rubs. RESPIRATORY: Inspiratory wheeze with faint crackles. Deep breath illicits cough. GASTROINTESTINAL: Abdomen soft, non-tender, nondistended. EXTREMITIES: No edema or joint tenderness. BACK: Nontender without deformity or crepitance. No flank tenderness. NEURO: AOx3. SKIN: No rash or erythema of visible areas Initial Vital Signs Initial Vital Signs: Vital Signs Temperature 97.2 F L 05/01/21 18:22 Pulse Rate 98 H 05/01/21 18:22 Respiratory Rate 12 05/01/21 18:22 Blood Pressure 108/74 05/01/21 18:22 Pulse Oximetry 97 05/01/21 18:22 Course Orders Ordered: ED Orders 05/01/21 18:31 XR chest 2V Stat 05/01/21 18:36 COVID19 -Nasal swab/Pre-Proc Stat Reevaluation(s) Reevaluation #1: Patient feeling significant improvement after the above-stated therapies Vital Signs Vital signs: Vital Signs - 8 hr 05/01/21 18:22 Temperature 97.2 F L Pulse Rate 98 H Respiratory Rate 12 Blood Pressure 108/74 Pulse Oximetry 97 MDM - SOB/Dyspnea Lab Data Labs: Lab Results 05/01/21 Range/Units 18:36 SARS-CoV-2 (PCR) Negative (Negative) Imaging Data Chest x-ray: Radiologist's Impression: [address] [address] XRay Report Signed Patient: Carisa Miller MR#: [id number] : 1985 Acct:[id number] Age/Sex: 36 / F Date of Service: 05/01/21 Loc: Accession Number: [id number] ?? Procedure: XR chest 2V Ordering Provider: Anderson Sawant D.O. PROCEDURE:? XR CHEST 2V ? INDICATIONS:? asthma attack, chest pain ? TECHNIQUE:? 2 views of the chest were acquired.? ? COMPARISON:? [facility], XR CHEST 1V, 08/19/2020, 10:27.? [facility], CHEST 2 VIEW, 05/01/2017, 12:06. ? FINDINGS:? ? Surgical changes and devices:? None.? ? Lungs and pleura:? Mildly prominent pulmonary markings bilaterally.? No pleural effusions or pneumothorax.? ? Mediastinum:? Mediastinal contours are normal.? Heart size is normal.? ? Bones and chest wall:? No suspicious bony abnormalities.? Soft tissues appear unremarkable.? ? IMPRESSION:? Mildly prominent pulmonary markings bilaterally.? This could be seen in reactive airways disease atypical pneumonia, or artifactual due to low lung volumes. ? ? ? Dictated by: Bj Crocker M.D. on 05/01/2021 at 18:10 ? ? Approved by: Bj Crocker M.D. on 05/01/2021 at 18:12 ? MDM Narrative Medical decision making narrative: Patient with upwards of 1 week of increasing hacking cough, shortness of breath and wheeze. Patient is very reassuring response to medications. She requires no supplemental oxygen and is in no obvious respiratory distress. Chest x-ray would suggest perhaps atypical pneumonia. Extensive discussion with patient at the bedside regarding advanced imaging, return precautions and need for follow-up. Her questions have been answered to her apparent satisfaction Discharge Plan Departure Patient Disposition: Home Clinical Impression: Atypical pneumonia Instructions: DI for Atypical Pneumonia Activity Restrictions/Additional Instructions: *You have been diagnosed with [atypical pneumonia] *What to do: *Please continue to take your regular medications as directed. [x] New medication prescriptions sent to your pharmacy: [[facility] ] [ ] New medication written as a paper prescription [ ] No new medications given *Please follow up with your primary care provider in 2-3 days, call for an appointment. Let them know you were seen in the Emergency Department and that we ask that you be seen in follow up. We will electronically transmit a record of today's note if your PCP is in our system *If you do not have a primary care provider please contact the [facility] Resource line at [phone]. They will ask some questions about your medical history and help get you set up with a doctor in the community. *Return to Emergency Department if you should have any new, worsening or concerning symptoms, such as [fever greater than 101 F, shaking chills, worsening pain, persistent vomiting or other bothersome symptoms] Prescriptions: New benzonatate [Tessalon Perles] 100 mg capsule 100 mg PO TID PRN (Reason: cough) Qty: 14 RF: 0 azithromycin 250 mg tablet See Rx Instructions .ROUTE .COMPLEX Qty: 6 RF: 0 No Action lamotrigine 200 mg tablet 200 mg PO DAILY Qty: 90 RF: 1 fluoxetine 20 mg capsule 20 mg PO DAILY Qty: 90 RF: 3 albuterol sulfate 90 mcg/actuation HFA aerosol inhaler 2 puff inhalation Q6H PRN (Reason: shortness of breath or wheezing) Qty: 8.5 RF: 0 naproxen 500 mg tablet 500 mg PO BID PRNRF: 0 LDN See Rx Instructions .ROUTE .COMPLEX Qty: 90 RF: 3 valacyclovir 1 gram tablet 1,000 mg PO BID 10 Days Qty: 20 RF: 1 Referrals: Carlota Peace ARNP [Primary Care Provider] - Stand Alone Forms: Work Release Note
[2021-05-01 18:53] LABS: COVID19 -Nasal RAPID Negative (Negative)
[2021-05-01 19:39] VITALS: BP 128/79; PULSE 90; O2SAT 100
== END 2021-05-01 19:48 | disposition home or self-care (01) ==
PROVIDERS: Emergency Provider Emergency Medicine; PCP Nurse Practitioner Family
DX: J18.9 Pneumonia, unspecified organism (principal); R05 Cough; Z20.822 Contact with and (suspected) exposure to COVID-19
CPT/HCPCS: 71046; 87635; 99283; C9803

== ENCOUNTER 2021-06-22 09:50 | Emergency (ER) | payer OTHER, SELFPAY ==
[2021-06-22 10:57] VITALS: BP 129/74; PULSE 118; RESP 20; TEMP 36.7; O2SAT 95; BMI 42.6
--- NOTE | 2021-06-22 11:05 | DI.RAD.S_ITS ---
PROCEDURE: XR CHEST 2V INDICATIONS: cough TECHNIQUE: 2 views of the chest were acquired. COMPARISON: [facility], [facility], XR CHEST 2V, 05/01/2021, 18:26. FINDINGS: Surgical changes and devices: None. Lungs and pleura: Lungs are clear. No pleural effusions or pneumothorax. Mediastinum: Mediastinal contours are normal. Heart size is normal. Bones and chest wall: No suspicious bony abnormalities. Soft tissues appear unremarkable. IMPRESSION: 1. No acute cardiopulmonary disease. Dictated by: Navdeep Blackwell M.D. on 06/22/2021 at 11:49 Approved by: Navdeep Blackwell M.D. on 06/22/2021 at 11:50
[2021-06-22 11:20] LABS: COVID19 -Nasal RAPID POSITIVE (Negative)
--- NOTE | 2021-06-22 13:04 | ED.URI ---
HPI - URI/Sore Throat General Chief Complaint: Upper Respiratory Symptoms Stated Complaint: Cough, SOB, Fever. Poss exposure Time Seen by Provider: 06/22/21 12:56 Source: patient Mode of arrival: Family Vehicle Limitations: no limitations History of Present Illness HPI Narrative: Patient is a 36-year-old female with history of asthma daughter is known COVID positive. She feels generally weak fever and is having some shortness of breath. She has generalized body aches intermittent headaches generally does not feel well. Today Her COVID test is also positive. Related Data Home Medications Medication Instructions Recorded Confirmed naproxen 500 mg tablet 500 mg PO BID PRN tab 10/08/20 05/06/21 Previous Rx's Medication Instructions Recorded fluoxetine 20 mg capsule 20 mg PO DAILY #90 cap 04/01/21 LDN See Rx Instructions .ROUTE 04/10/21 .COMPLEX #90 caplet valacyclovir 1 gram tablet 1,000 mg PO BID 10 Days #20 tab 04/23/21 albuterol sulfate 90 mcg/actuation 2 puff INHALATION Q6H PRN #8.5 g 04/29/21 aerosol inhaler azithromycin 250 mg tablet See Rx Instructions .ROUTE 05/01/21 .COMPLEX #6 tab benzonatate 100 mg capsule 100 mg PO TID PRN #14 cap 05/06/21 (Isa Plummer) triamcinolone acetonide 0.1 % 1 applic TOPICAL BID #45 g 05/20/21 topical cream lamotrigine 200 mg tablet 200 mg PO DAILY #90 tab 06/17/21 Allergies Allergy/AdvReac Type Severity Reaction Status Date / Time amoxicillin [From AUGMENTIN] Allergy Unknown DIARRHEA Verified 05/01/21 18:26 AND STOMACH CRAMPS clavulanic acid Allergy Unknown DIARRHEA Verified 05/01/21 18:26 [From AUGMENTIN] AND STOMACH CRAMPS codeine Allergy Unknown Verified 05/01/21 18:26 cyclobenzaprine Allergy Unknown Verified 05/01/21 18:26 [From FLEXERIL] Review of Systems Review of Systems Narrative: GENERAL: See HPI HEENT: Denies sinus pain, ear pain, sore throat, difficulty swallowing, neck pain RESPIRATORY: See HPI CARDIOVASCULAR: Denies chest pain, palpitations, orthopnea, edema GASTROINTESTINAL: Denies nausea, vomiting, abdominal pain, diarrhea, constipation, melena. : Denies dysuria, frequency, incontinence, hematuria, urinary retention, flank pain. MUSCULOSKELETAL: Denies weakness, joint pain, or bony pain SKIN: No rash, no erythema, no pruritus NEUROLOGIC: Denies weakness, dizziness, headache, numbness, change in speech, confusion PSYCHIATRIC: No concerning psychosocial issues. 12 point review of systems is negative except for those stated above and HPI Patient History Medical History Acute thoracic back pain ADD (attention deficit disorder) (Unknown) Anxiety (Unknown) Bipolar disorder (Unknown) Bipolar disorder Class 3 obesity Cyst Depression (Unknown) Dyshidrotic eczema Encounter for long-term current use of medication Evaluation regarding contraception options Food sensitivity with gastrointestinal symptoms Herpes (Unknown) Large breasts Mid back pain Strain of neck muscle URI (upper respiratory infection) Surgical History Hx of tonsillectomy Family History Family/Other Hypertension Dementia Father Loud snoring Mother Loud snoring Sleep apnea Restless leg Obesity Hypertension Depression Anxiety Bipolar disorder Alcohol abuse Family/Other Depression Anxiety Bipolar disorder Social History Smoking Status: Former smoker Tobacco: How many years used: 2 second hand exposure: No alcohol intake: current substance use type: marijuana Smoking Status: Former smoker alcohol intake frequency: 0-2 drinks per day Substance Use Type: marijuana Exam Initial Vital Signs Initial Vital Signs: Vital Signs Temperature 98.0 F 06/22/21 10:57 Pulse Rate 118 H 06/22/21 10:57 Respiratory Rate 20 06/22/21 10:57 Blood Pressure 129/74 06/22/21 10:57 Pulse Oximetry 95 06/22/21 10:57 GENERAL: Well-appearing, well-nourished and in no acute distress. HEENT: Head atraumatic,EOMI, pupils reactive, face symmetric, moist mucous membranes CARDIOVASCULAR: Regular rate and rhythm without murmurs, rubs or gallops. RESPIRATORY: Breath sounds equal bilaterally, no wheezes rales or rhonchi. EXTREMITIES: Normal range of motion, no clubbing or edema. Neurovascularly intact NEUROLOGICAL: Alert and oriented x4.Normal gait and speech. SKIN: Warm, dry, no laceration, no petechiae, no rashes or lesions. Course Orders Ordered: ED Orders 06/22/21 10:56 COVID19 -Nasal swab/Pre-Proc Stat 06/22/21 11:05 Chest [XR chest 2V] Stat Vital Signs Vital signs: Vital Signs - 8 hr 06/22/21 13:25 Pulse Rate 105 H Respiratory Rate 16 Pulse Oximetry 95 MDM - URI/Sore Throat Lab Data Labs: Lab Results 06/22/21 Range/Units 10:56 SARS-CoV-2 (PCR) Positive H (Negative) Imaging Data Chest x-ray: Radiologist's Impression: PROCEDURE:? XR CHEST 2V ? INDICATIONS:? cough ? TECHNIQUE:? 2 views of the chest were acquired.? ? COMPARISON:? [facility], , XR CHEST 2V, 05/01/2021, 18:26. ? FINDINGS:? ? Surgical changes and devices:? None.? ? Lungs and pleura:? Lungs are clear.? No pleural effusions or pneumothorax.? ? Mediastinum:? Mediastinal contours are normal.? Heart size is normal.? ? Bones and chest wall:? No suspicious bony abnormalities.? Soft tissues appear unremarkable.? ? IMPRESSION:? ? 1.? No acute cardiopulmonary disease. ? ? ? Dictated by: Navdeep Blackwell M.D. on 06/22/2021 at 11:49 ? ? Discharge Plan Departure Patient Disposition: Home Clinical Impression: COVID-19 Instructions: DI for COVID-19 (Suspected or Confirmed ) Activity Restrictions/Additional Instructions: * if you have not yet been vaccinated is still recommended and encouraged that you do so once your infection has passed At home: -Monitor oxygen with pulse oximeter. -Wash hands frequently. -Stay isolated at home please follow the isolation instructions below. -Increase fluid intake. -you may take Tylenol as directed if needed for pain or fever Emergency warning signs for COVID-19: - Difficulty breathing or shortness of breath, oxygen less than 90% x2, at least 1 hour apart then return. - Persistent pain or pressure in the chest - New confusion or inability to arouse - Bluish lips or face CDC Guidelines for home isolation: - Stay away from others - Limit contact with pets and animals: If you must care for a pet, wash your hands before and after interacting with them - Wear a mask while in public all places - Cover your mouth and nose with a tissue when you cough or sneeze. Dispose of tissues in a lined trash can and wash your hands immediately with soap and water for at least 20 seconds. If soap and water are not available, clean hands with alcohol-based hand welding pantograph operator that contains at least 60% alcohol. - Clean your hands often with soap and water for at least 20 seconds - Avoid touching your eyes, nose and mouth with unwashed hands - Do not share dishes, drinking glasses, cups, eating utensils, towels, or bedding with other people in your home. After using these items, wash them thoroughly with soap and water or put in the cytology laboratory manager. - Clean high-touch surfaces in your isolation area (?sick room? and bathroom) every day; let a caregiver clean and disinfect high-touch surfaces in other areas of the home. Clean the area or item with soap and water or another detergent if it is dirty. Then, use a household disinfectant. Prescriptions: No Action benzonatate [Tessalon Perles] 100 mg capsule 100 mg PO TID PRN (Reason: cough) Qty: 14 RF: 0 fluoxetine 20 mg capsule 20 mg PO DAILY Qty: 90 RF: 3 albuterol sulfate 90 mcg/actuation HFA aerosol inhaler 2 puff inhalation Q6H PRN (Reason: shortness of breath or wheezing) Qty: 8.5 RF: 0 lamotrigine 200 mg tablet 200 mg PO DAILY Qty: 90 RF: 1 naproxen 500 mg tablet 500 mg PO BID PRNRF: 0 triamcinolone acetonide 0.1 % cream 1 applic topical BID Qty: 45 RF: 0 LDN See Rx Instructions .ROUTE .COMPLEX Qty: 90 RF: 3 valacyclovir 1 gram tablet 1,000 mg PO BID 10 Days Qty: 20 RF: 1 azithromycin 250 mg tablet See Rx Instructions .ROUTE .COMPLEX Qty: 6 RF: 0 Referrals: Carlota Peace ARNP [Primary Care Provider] -
[2021-06-22 13:25] VITALS: PULSE 105; RESP 16; O2SAT 95
== END 2021-06-22 13:30 | disposition home or self-care (01) ==
PROVIDERS: Emergency Provider Emergency Medicine; PCP Nurse Practitioner Family
DX: U07.1 COVID-19 (principal); R05.9 Cough, unspecified
CPT/HCPCS: 71046; 87635; 99281; 99283; C9803

== ENCOUNTER → 2021-11-13 16:34 | Outpatient (CLI) | payer OTHER, SELFPAY ==
--- NOTE | 2021-11-13 16:46 | DI.RAD.S_ITS ---
PROCEDURE: XR THORACIC SPINE 2V INDICATIONS: thoracic back pain TECHNIQUE: 2 views of the thoracic spine were acquired. COMPARISON: None. FINDINGS: Bones: No fractures or dislocations. No suspicious bony lesions. 12 pairs of ribs are noted, and appear intact where visualized. Mild degenerative changes are present within the mid thoracic spine including intervertebral disc space narrowing and osteophytosis. Soft tissues: No paravertebral stripe thickening. IMPRESSION: Mild degenerative change. Dictated by: Ilana Reina M.D. on 11/13/2021 at 17:12 Approved by: Ilana Reina M.D. on 11/13/2021 at 17:13
== END ==
PROVIDERS: PCP Nurse Practitioner Family; Referring Provider Nurse Practitioner Family; Visit Provider Nurse Practitioner Family
DX: M47.814 Spondylosis without myelopathy or radiculopathy, thoracic region (principal); M54.6 Pain in thoracic spine
CPT/HCPCS: 72070

== ENCOUNTER → 2022-01-08 14:15 | Outpatient (CLI) | payer OTHER, SELFPAY ==
--- NOTE | 2022-01-08 14:16 | DI.US.S_ITS ---
PROCEDURE: US PELVIC COMPLETE INDICATIONS: amenorrhea TECHNIQUE: Real-time scanning was performed of the pelvic organs, with image documentation. Additional endovaginal scanning was necessary due to incomplete visualization of the adnexal and endometrial structures by transabdominal scanning. COMPARISON: [facility], , PELVIC COMPLETE, 09/23/2017, 9:22. FINDINGS: Uterus: Uterus is retroverted and normal in size at 6.6 x 3.8 x 5.3 cm. The myometrium is homogeneous. The endometrium measures 4.5 mm combined thickness. Ovaries: The right ovary measures 2.9 x 2 x 2.9 cm. The left ovary measures 3.2 x 2 x 2.2 cm. The ovaries have a normal sonographic appearance. No adnexal masses are seen. Other: A mild amount of free pelvic fluid is seen, which is considered to be within physiologic limits. IMPRESSION: No significant pelvic ultrasound abnormality is seen. We strive to produce accurate, complete, and clear reports of imaging services. To assist us in improving patient care, this report was composed using standard report templates and voice recognition software. Therefore, it may contain abnormal punctuation, insertions and/or omissions. Occasional wrong-word or sound-alike substitutions may occur. Though we review the report and make efforts to correct it, we do recommend that the report be read carefully in proper context to recognize any text inaccuracies. Dictated by: Odilon Gaitan M.D. on 01/08/2022 at 14:05 Approved by: Odilon Gaitan M.D. on 01/08/2022 at 14:06
== END ==
PROVIDERS: PCP Nurse Practitioner Family; Referring Provider Nurse Practitioner Family; Visit Provider Nurse Practitioner Family
DX: N91.2 Amenorrhea, unspecified (principal)
CPT/HCPCS: 76830; 76856

== ENCOUNTER 2022-01-26 09:26 | Emergency (ER) | payer OTHER, MEDICAID, SELFPAY ==
[2022-01-26 09:47] VITALS: BP 117/75; PULSE 84; RESP 22; TEMP 36.6; O2SAT 99; BMI 47.5
--- NOTE | 2022-01-26 09:55 | PC.NURSE ---
Patient declines covid test.
[2022-01-26] MEDS: ONDANSETRON 4 MG/2 ML INJ IV (11:15)
[2022-01-26] MEDS: SODIUM CHLORIDE 0.9% 1,000 ML 1000 ML IV (11:16)
[2022-01-26 11:21] LABS: Add Manual Diff / Slide Review NO; Basophils Absolute Auto 0 /uL (0-100); Basophils Percent Auto 0.7 % (0-2); Eosinophils Absolute Auto 100 /uL (0-450); Eosinophils Percent Auto 1.5 % (2-4); Hematocrit 39.7 % (36-46); Hemoglobin 13.5 g/dL (12.0-16.0); Lymphocytes Absolute Auto 1800 /uL (1100-4500); Lymphocytes Percent Auto 27.3 % (25-40); Mean Corpuscular Hemoglobin 28.4 PG (26-34); Mean Corpuscular Volume 83.6 fL (80-100); Monocytes Absolute Auto 300 /uL (0-900); Monocytes Percent Auto 4.1 % (3-14); Neutrophils Absolute Auto 4400 /uL (1500-7000); Neutrophils Percent Auto 66.4 % (50-75); Platelet Count 219 X10^3/uL (150-400); Red Blood Cell Count 4.75 X10^6/uL (4.0-5.2); Red Cell Distribution Width 14.4 % (11.6-14.8); White Blood Cell Count 6.6 X10^3/uL (4.5-11.0)
[2022-01-26 11:24] LABS: BUN Creatinine Ratio 12.8 (6-22); Blood Urea Nitrogen 10 mg/dL (7-17); Calcium 9.1 mg/dL (8.4-10.2); Carbon Dioxide 28 mmol/L (22-32); Chloride 102 mmol/L (98-107); Estimated Glomerular Filt Rate > 60 mL/min (>60); Glucose 124 mg/dL (70-100); HEMOLYSIS < 15 (0-50); Potassium 4.1 mmol/L (3.4-5.1); Sodium 138 mmol/L (137-145)
--- NOTE | 2022-01-26 13:20 | ED_ITS ---
HPI - Headache <Faraz Alford PA-C - Last Filed: 01/26/22 20:14> General Chief Complaint: Headache Stated Complaint: dizzy, fatigue, muscle pain Time Seen by Provider: 01/26/22 12:03 Mode of arrival: Wheelchair History of Present Illness HPI Narrative: Patient is a 36-year-old female who presents to the emergency department for an evaluation of muscle spasms, nausea, dizziness, and headache. Patient explains that she was out the sun on Wednesday from 0 900-14 30, stating that she believes that she became dehydrated during that time. She explains that since that time she has been experiencing symptoms of neck pain with muscle spasms, headache, nausea, and dizziness. Of note, patient denies any recent falls or trauma to the head. She denies fever, chills, chest pain, cough, shortness of breath, vomiting, diarrhea, constipation, abdominal pain, dysuria, hematuria, numbness and tingling in the extremities, or any other concerning symptoms. No further concerns are voiced at this time. Related Data Previous Rx's Medication Instructions Recorded fluoxetine 20 mg capsule 20 mg PO DAILY #90 caps 04/01/21 LDN See Rx Instructions .Route 04/10/21 .COMPLEX #90 caplets valacyclovir 1 gram tablet 1,000 mg PO BID 10 days #20 tabs 04/23/21 albuterol sulfate 90 mcg/actuation 2 puff inhalation Q6H PRN 04/29/21 aerosol inhaler shortness of breath or wheezing #8.5 grams azithromycin 250 mg tablet See Rx Instructions PO .COMPLEX #6 05/01/21 tabs benzonatate 100 mg capsule 100 mg PO TID PRN cough #14 caps 05/06/21 (Isa Plummer) triamcinolone acetonide 0.1 % 1 applic topical BID #45 grams 05/20/21 topical cream lamotrigine 200 mg tablet 200 mg PO DAILY #90 tabs 06/17/21 naltrexone 50 mg tablet See Rx Instructions PO .COMPLEX 12/17/21 anxiety 100 days #1 kit albuterol sulfate 90 mcg/actuation 2 puff inhalation Q6H PRN 01/01/22 aerosol inhaler shortness of breath or wheezing #6.7 grams benzonatate 100 mg capsule 100 mg PO BID PRN cough #20 caps 01/01/22 meclizine 25 mg chewable tablet 25 mg PO BID PRN dizziness #14 tabs 01/26/22 (Antivert) ondansetron 4 mg disintegrating 4 mg PO Q8H PRN nausea and 01/26/22 tablet vomiting #12 tabs naproxen 500 mg tablet See Rx Instructions .Route 01/29/22 .COMPLEX #60 tabs sumatriptan succinate 25 mg tablet See Rx Instructions PO .COMPLEX 01/30/22 #14 tabs Allergies Allergy/AdvReac Type Severity Reaction Status Date / Time codeine Allergy Unknown Verified 01/27/22 09:25 cyclobenzaprine Allergy Unknown Verified 01/27/22 09:25 [From FLEXERIL] methocarbamol AdvReac Intermediate Drowsy Verified 01/27/22 09:25 amoxicillin [From AUGMENTIN] AdvReac Unknown DIARRHEA Verified 01/27/22 09:25 AND STOMACH CRAMPS clavulanic acid AdvReac Unknown DIARRHEA Verified 01/27/22 09:25 [From AUGMENTIN] AND STOMACH CRAMPS Review of Systems <Faraz Alford PA-C - Last Filed: 01/26/22 20:14> Constitutional Constitutional: Denies chills, Denies fatigue, Denies fever(s), Denies frequent falls, Reports headache(s), Denies lethargy and Denies weakness ENT Ears, Nose, Mouth, and Throat: Reports dizziness, Reports headache(s) and Reports neck pain Cardiovascular Cardiovascular: Denies chest pain, Denies irregular heart rhythm, Denies lightheadedness, Denies palpitations, Denies dyspnea, Denies dyspnea on exertion and Denies orthopnea Respiratory Respiratory: Denies dyspnea and Denies dyspnea on exertion Gastrointestinal Gastrointestinal: Denies abdominal pain, Denies change in bowel habits, Denies diarrhea, Reports nausea and Denies vomiting Genitourinary Genitourinary: Denies hematuria, Denies flank pain, Denies urinary incontinence and Denies urinary urgency Musculoskeletal Musculoskeletal: Denies back pain, Denies muscle weakness, Reports neck pain, Denies numbness, Denies tingling and Reports other (Muscle spasms) Integumentary/Breasts Skin/Breast: Denies pruritus, Denies erythema, Denies rash and Denies wounds Neurologic Neurologic: Reports dizziness, Denies frequent falls, Reports headache(s), Denies numbness, Denies tingling and Denies weakness Endocrine Endocrine: Denies fatigue and Denies palpitations Patient History <Faraz Alford PA-C - Last Filed: 01/26/22 20:14> Medical History Acute thoracic back pain ADD (attention deficit disorder) (Unknown) Amenorrhea (08/2021) Anxiety (Unknown) Bipolar disorder (Unknown) Bipolar disorder Class 3 obesity Cyst Depression (Unknown) Dyshidrotic eczema Encounter for long-term current use of medication Evaluation regarding contraception options Food sensitivity with gastrointestinal symptoms Herpes (Unknown) Large breasts Lumbar strain Mid back pain Strain of neck muscle URI (upper respiratory infection) Surgical History Hx of tonsillectomy Family History Family/Other Hypertension Dementia Father Loud snoring Mother Loud snoring Sleep apnea Restless leg Obesity Hypertension Depression Anxiety Bipolar disorder Alcohol abuse Family/Other Depression Anxiety Bipolar disorder Social History Smoking Status: Former smoker Tobacco: How many years used: 2 second hand exposure: No alcohol intake: current substance use type: marijuana Smoking Status: Former smoker alcohol intake frequency: 0-2 drinks per day Substance Use Type: marijuana Exam <Faraz Alford PA-C - Last Filed: 01/26/22 20:14> Narrative Exam Narrative: GENERAL: 36 year old patient appears stated age. Well-developed patient, in no acute distress. HEAD: Atraumatic. Normocephalic. EYES: Pupils equal round and reactive. Extraocular motions intact. No scleral icterus. No injection or drainage. ENT: Nose without bleeding, purulent drainage. Throat without erythema, tonsillar hypertrophy or exudate. Airway patent. NECK: Trachea midline. Non tender CARDIOVASCULAR: Regular rate and rhythm without murmurs, gallops, or rubs. RESPIRATORY: Clear to auscultation. Breath sounds equal bilaterally. No wheezes, rales, or rhonchi. GASTROINTESTINAL: Abdomen soft, non-tender, nondistended. EXTREMITIES: No edema or joint tenderness. BACK: Nontender without deformity or crepitance. No flank tenderness. NEURO: AOx3. SKIN: No rash or erythema of visible areas Initial Vital Signs Initial Vital Signs: Vital Signs Temperature 97.8 F 01/26/22 09:47 Pulse Rate 84 01/26/22 09:47 Respiratory Rate 22 01/26/22 09:47 Blood Pressure 117/75 01/26/22 09:47 Pulse Oximetry 99 01/26/22 09:47 Oxygen Delivery Method 01/26/22 09:47 <Anny Sandhu DO - Last Filed: 02/01/22 12:53> Initial Vital Signs Initial Vital Signs: Vital Signs Temperature 97.8 F 01/26/22 09:47 Pulse Rate 84 01/26/22 09:47 Respiratory Rate 22 01/26/22 09:47 Blood Pressure 117/75 01/26/22 09:47 Pulse Oximetry 99 01/26/22 09:47 Oxygen Delivery Method 01/26/22 09:47 Course <Faraz Alford PA-C - Last Filed: 01/26/22 20:14> Course Course Narrative: Patient provided with normal saline, Zofran, and Antivert in the emergency department. She explains that her symptoms have been improving and she would like to be discharged at this time. Orders Ordered: Discontinued Medications Sodium Chloride (Normal Saline 0.9%) 1,000 mls @ 1,000 mls/hr IV BOLUS ONE Stop: 01/26/22 12:04 Last Infusion: 01/26/22 12:41 Dose: 0 mls/hr Documented By: Admin: 01/26/22 11:16 Dose: 1,000 mls/hr Documented By: ERIKA Meclizine HCl (Meclizine Hcl 12.5 Mg Tablet) 25 mg PO NOW ONE Stop: 01/26/22 12:49 Last Admin: 01/26/22 13:44 Dose: 25 mg Documented By: NASIR Ondansetron HCl (Ondansetron 4 Mg/2 Ml Inj) 4 mg IV NOW ONE Stop: 01/26/22 11:06 Last Admin: 01/26/22 11:15 Dose: 4 mg Documented By: ERIKA Vital Signs Vital signs: Vital Signs - 8 hr 01/26/22 13:58 Pulse Rate 80 Respiratory Rate 18 Blood Pressure 120/74 Pulse Oximetry 100 Oxygen Delivery Method Room Air <DO Rufus Last Last Filed: 02/01/22 12:53> Orders Ordered: Discontinued Medications Sodium Chloride (Normal Saline 0.9%) 1,000 mls @ 1,000 mls/hr IV BOLUS ONE Stop: 01/26/22 12:04 Last Infusion: 01/26/22 12:41 Dose: 0 mls/hr Documented By: Admin: 01/26/22 11:16 Dose: 1,000 mls/hr Documented By: ERIKA Meclizine HCl (Meclizine Hcl 12.5 Mg Tablet) 25 mg PO NOW ONE Stop: 01/26/22 12:49 Last Admin: 01/26/22 13:44 Dose: 25 mg Documented By: NASIR Ondansetron HCl (Ondansetron 4 Mg/2 Ml Inj) 4 mg IV NOW ONE Stop: 01/26/22 11:06 Last Admin: 01/26/22 11:15 Dose: 4 mg Documented By: ERIKA Vital Signs Vital signs: Vital Signs - 8 hr 01/26/22 13:58 Pulse Rate 80 Respiratory Rate 18 Blood Pressure 120/74 Pulse Oximetry 100 Oxygen Delivery Method Room Air MDM - Headache <Faraz Alford PA-C - Last Filed: 01/26/22 20:14> Lab Data Result diagrams: 01/26/22 11:00 01/26/22 11:00 Labs: Lab Results 01/26/22 01/26/22 Range/Units 11:00 11:00 WBC 6.6 (4.5-11.0) X10^3/uL RBC 4.75 (4.0-5.2) X10^6/uL Hgb 13.5 (12.0-16.0) g/dL Hct 39.7 (36-46) % MCV 83.6 (80-100) fL MCH 28.4 (26-34) PG MCHC 34.0 (30-36) % RDW 14.4 (11.6-14.8) % Plt Count 219 (150-400) X10^3/uL Neut % (Auto) 66.4 (50-75) % Lymph % (Auto) 27.3 (25-40) % [place] % (Auto) 4.1 (3-14) % Eos % (Auto) 1.5 L (2-4) % Baso % (Auto) 0.7 (0-2) % Neut # (Auto) 4400 (0241-3366) /uL Lymph # (Auto) 1800 (0712-2231) /uL [place] # (Auto) 300 (0-900) /uL Eos # (Auto) 100 (0-450) /uL Baso # (Auto) 0 (0-100) /uL Sodium 138 (137-145) mmol/L Potassium 4.1 (3.4-5.1) mmol/L Chloride 102 (98-107) mmol/L Carbon Dioxide 28 (22-32) mmol/L BUN 10 (7-17) mg/dL Creatinine 0.78 (0.52-1.04) mg/dL Estimated GFR > 60 (>60) mL/min BUN/Creatinine Ratio 12.8 (6-22) Glucose 124 H (70-100) mg/dL Calcium 9.1 (8.4-10.2) mg/dL MDM Narrative Medical decision making narrative: Differential diagnosis to consider but not limited to dehydration versus viral upper respiratory infection versus electrolyte derangement versus muscle strain. Overall, physical examination history reassuring. Patient's symptoms improved following administration normal saline, Zofran, and Antivert. I urged the christiana ent to continue drinking plenty of fluids additionally, I prescribed the patient medication to help alleviate nausea and dizziness. Patient expresses understanding and agrees to plan. Very strict return precautions were discussed with the patient prior to discharge. <Anny Sandhu, DO - Last Filed: 02/01/22 12:53> Lab Data Labs: Lab Results 01/26/22 01/26/22 Range/Units 11:00 11:00 WBC 6.6 (4.5-11.0) X10^3/uL RBC 4.75 (4.0-5.2) X10^6/uL Hgb 13.5 (12.0-16.0) g/dL Hct 39.7 (36-46) % MCV 83.6 (80-100) fL MCH 28.4 (26-34) PG MCHC 34.0 (30-36) % RDW 14.4 (11.6-14.8) % Plt Count 219 (150-400) X10^3/uL Neut % (Auto) 66.4 (50-75) % Lymph % (Auto) 27.3 (25-40) % [place] % (Auto) 4.1 (3-14) % Eos % (Auto) 1.5 L (2-4) % Baso % (Auto) 0.7 (0-2) % Neut # (Auto) 4400 (0760-7422) /uL Lymph # (Auto) 1800 (4018-6129) /uL [place] # (Auto) 300 (0-900) /uL Eos # (Auto) 100 (0-450) /uL Baso # (Auto) 0 (0-100) /uL Sodium 138 (137-145) mmol/L Potassium 4.1 (3.4-5.1) mmol/L Chloride 102 (98-107) mmol/L Carbon Dioxide 28 (22-32) mmol/L BUN 10 (7-17) mg/dL Creatinine 0.78 (0.52-1.04) mg/dL Estimated GFR > 60 (>60) mL/min BUN/Creatinine Ratio 12.8 (6-22) Glucose 124 H (70-100) mg/dL Calcium 9.1 (8.4-10.2) mg/dL Discharge Plan Departure Patient Disposition: Home Clinical Impression: Dehydration, Headache, Dizziness Instructions: DI for Headache Activity Restrictions/Additional Instructions: *You have been diagnosed with dehydration, dizziness, headache *What to do: *Please continue to take your regular medications as directed. [X] New medication prescriptions sent to your pharmacy: [facility], Antivert[facility] [ ] New medication written as a paper prescription [ ] No new medications given You were evaluated in the emergency department today for headache, dizziness, nausea, and muscle spasms. I am glad we were able to get your symptoms under control. I have provided you with a prescription to help improve your nausea and dizziness. Ensure that you are staying well hydrated throughout the day, Pedialyte and watered down Gatorade rate ways to keep your electrolyte levels up. Please continue using your naproxen as needed for pain management. I recommend following up with the primary care provider within the next week or so for further evaluation and management. Please do not hesitate to return to the emergency department if you experience worsening pain, loss of consciousness, persistent vomiting, or any other concerning symptoms. *Please follow up with your primary care provider in 2-3 days, call for an appointment. Let them know you were seen in the Emergency Department and that we ask that you be seen in follow up. We will electronically transmit a record of today's note if your PCP is in our system *If you do not have a primary care provider please contact the [facility] Resource line at [phone]. They will ask some questions about your medical history and help get you set up with a doctor in the community. *Return to Emergency Department if you should have any new, worsening or concerning symptoms, such as fever greater than 101 F, shaking chills, worsening pain, persistent vomiting or other bothersome symptoms. Prescriptions: New ondansetron 4 mg tablet,disintegrating 4 mg PO Q8H PRN (Reason: nausea and vomiting) Qty: 12 0RF meclizine [Antivert] 25 mg tablet,chewable 25 mg PO BID PRN (Reason: dizziness) Qty: 14 0RF No Action benzonatate [Tessalon Perles] 100 mg capsule 100 mg PO TID PRN (Reason: cough) Qty: 14 0RF benzonatate 100 mg capsule 100 mg PO BID PRN (Reason: cough) Qty: 20 0RF albuterol sulfate 90 mcg/actuation HFA aerosol inhaler 2 puff inhalation Q6H PRN (Reason: shortness of breath or wheezing) Qty: 6.7 0RF fluoxetine 20 mg capsule 20 mg PO DAILY Qty: 90 3RF albuterol sulfate 90 mcg/actuation HFA aerosol inhaler 2 puff inhalation Q6H PRN (Reason: shortness of breath or wheezing) Qty: 8.5 0RF lamotrigine 200 mg tablet 200 mg PO DAILY Qty: 90 1RF naltrexone 50 mg tablet See Rx Instructions PO .COMPLEX 100 Days Qty: 1 0RF Rx Instructions: Disp compounded 1mg caps Take one cap PO QHS x 7d, then 1 cap BID x 7d then 1 cap QAM + 2 caps QPM x 7d then 2 caps BID x 7d, then 2 caps QAM + 3 caps QPM x 7days, then 3 caps BID thereafter naproxen 500 mg tablet See Rx Instructions .ROUTE .COMPLEX Qty: 60 2RF Dose Instruction: TAKE 1 TABLET BY MOUTH TWICE A DAY NEEDED FOR PAIN. STOP OTHER NSAIDS. TAKE WITH FOOD Rx Instructions: TAKE 1 TABLET BY MOUTH TWICE A DAY NEEDED FOR PAIN. STOP OTHER NSAIDS. TAKE WITH FOOD triamcinolone acetonide 0.1 % cream 1 applic topical BID Qty: 45 0RF LDN See Rx Instructions .ROUTE .COMPLEX Qty: 90 3RF Rx Instructions: Start at 0.5 mg twice per day. Increase by 0.5 mg alternating time of day each week for max dosing 16mg BID. valacyclovir 1 gram tablet 1,000 mg PO BID 10 Days Qty: 20 1RF Rx Instructions: Take 1 tab twice daily for oral lesion sumatriptan succinate 25 mg tablet See Rx Instructions PO .COMPLEX Qty: 14 1RF Rx Instructions: take 1 tab at onset of headache; if no relief may repeat 1 tab after at least 2 hrs; max = 4 tabs/24 hr PO azithromycin 250 mg tablet See Rx Instructions .ROUTE .COMPLEX Qty: 6 0RF Rx Instructions: take 500 mg today (day 1), then 250 mg for 4 days (days 2-5) Visit Report Forms: Patient Portal/API <Anny Sandhu DO - Last Filed: 02/01/22 12:53> Cosign ED Attending Cosignature Attestation: I was immediately available in the department for consultation. Documentation has been reviewed.
[2022-01-26] MEDS: MECLIZINE HCL 12.5 MG TABLET 25 MG PO (13:44)
[2022-01-26 13:58] VITALS: BP 120/74; PULSE 80; RESP 18; O2SAT 100
== END 2022-01-26 13:58 | disposition home or self-care (01) ==
PROVIDERS: Emergency Medicine; Emergency Provider Physician Assistant
DX: E86.0 Dehydration (principal); R51.9 Headache, unspecified; R42 Dizziness and giddiness
CPT/HCPCS: 36415; 80048; 85025; 96361; 96374; 99284; J2405

== ENCOUNTER 2022-01-27 09:17 | Emergency (ER) | payer OTHER, SELFPAY ==
[2022-01-27 09:20] VITALS: BP 119/73; PULSE 76; RESP 17; TEMP 36.8; O2SAT 97; BMI 47.5
--- NOTE | 2022-01-27 09:38 | ED_ITS ---
HPI - Headache General Chief Complaint: Headache Stated Complaint: [id number] and alot of pain Time Seen by Provider: 01/27/22 09:22 Mode of arrival: Ambulatory History of Present Illness HPI Narrative: 36-year-old female former smoker with history of migraines and asthma presents for the 2nd time in the past few days. She has had a generally worsening he adache over the past few days in the absence of fever, chills or neck pain. She has no blurred vision or trouble with speech. She states her pain is worse with bright lights and loud noise. She had been seen and evaluated after being outside all day on Wednesday and had a thorough evaluation without significant findings, she was thought to have been dehydrated. Related Data Previous Rx's Medication Instructions Recorded fluoxetine 20 mg capsule 20 mg PO DAILY #90 caps 04/01/21 LDN See Rx Instructions .Route 04/10/21 .COMPLEX #90 caplets valacyclovir 1 gram tablet 1,000 mg PO BID 10 days #20 tabs 04/23/21 albuterol sulfate 90 mcg/actuation 2 puff inhalation Q6H PRN 04/29/21 aerosol inhaler shortness of breath or wheezing #8.5 grams azithromycin 250 mg tablet See Rx Instructions PO .COMPLEX #6 05/01/21 tabs benzonatate 100 mg capsule 100 mg PO TID PRN cough #14 caps 05/06/21 (Isa Plummer) triamcinolone acetonide 0.1 % 1 applic topical BID #45 grams 05/20/21 topical cream lamotrigine 200 mg tablet 200 mg PO DAILY #90 tabs 06/17/21 naproxen 500 mg tablet See Rx Instructions .Route 11/11/21 .COMPLEX #60 tabs naltrexone 50 mg tablet See Rx Instructions PO .COMPLEX 12/17/21 anxiety 100 days #1 kit albuterol sulfate 90 mcg/actuation 2 puff inhalation Q6H PRN 01/01/22 aerosol inhaler shortness of breath or wheezing #6.7 grams benzonatate 100 mg capsule 100 mg PO BID PRN cough #20 caps 01/01/22 meclizine 25 mg chewable tablet 25 mg PO BID PRN dizziness #14 tabs 01/26/22 (Antivert) ondansetron 4 mg disintegrating 4 mg PO Q8H PRN nausea and 01/26/22 tablet vomiting #12 tabs Allergies Allergy/AdvReac Type Severity Reaction Status Date / Time codeine Allergy Unknown Verified 01/27/22 09:25 cyclobenzaprine Allergy Unknown Verified 01/27/22 09:25 [From FLEXERIL] methocarbamol AdvReac Intermediate Drowsy Verified 01/27/22 09:25 amoxicillin [From AUGMENTIN] AdvReac Unknown DIARRHEA Verified 01/27/22 09:25 AND STOMACH CRAMPS clavulanic acid AdvReac Unknown DIARRHEA Verified 01/27/22 09:25 [From AUGMENTIN] AND STOMACH CRAMPS Review of Systems Review of Systems Narrative: GENERAL: see HPI HEENT: Denies sinus pain, ear pain, sore throat, difficulty swallowing, dizziness. RESPIRATORY: Denies dyspnea, cough, wheezing, hemoptysis, sputum. CARDIOVASCULAR: Denies chest pain, palpitations, orthopnea, edema, GASTROINTESTINAL: Denies nausea, vomiting, abdominal pain, diarrhea, constipation, melena. : Denies dysuria, frequency, incontinence, hematuria, urinary retention. MUSCULOSKELETAL: denies weakness, joint pain, or bony pain SKIN: Denies rash, skin lesions, or other NEUROLOGIC: see HPI PSYCHIATRIC: No concerning psychosocial issues. 12 point review of systems is negative except for those stated above Patient History Medical History Acute thoracic back pain ADD (attention deficit disorder) (Unknown) Amenorrhea (08/2021) Anxiety (Unknown) Bipolar disorder (Unknown) Bipolar disorder Class 3 obesity Cyst Depression (Unknown) Dyshidrotic eczema Encounter for long-term current use of medication Evaluation regarding contraception options Food sensitivity with gastrointestinal symptoms Herpes (Unknown) Large breasts Lumbar strain Mid back pain Strain of neck muscle URI (upper respiratory infection) Surgical History Hx of tonsillectomy Family History Family/Other Hypertension Dementia Father Loud snoring Mother Loud snoring Sleep apnea Restless leg Obesity Hypertension Depression Anxiety Bipolar disorder Alcohol abuse Family/Other Depression Anxiety Bipolar disorder Social History Smoking Status: Former smoker Tobacco: How many years used: 2 second hand exposure: No alcohol intake: current substance use type: marijuana Smoking Status: Former smoker alcohol intake frequency: holidays/special occasions only Substance Use Type: marijuana Exam Narrative Exam Narrative: GENERAL: [36] year old patient appears stated age. Well-developed patient, obviously uncomfortable, covering her eyes with a towel HEAD: Atraumatic. Normocephalic. EYES: Pupils equal round and reactive. Extraocular motions intact. No scleral icterus. No injection or drainage. ENT: Nose without bleeding, purulent drainage. Throat without erythema, tonsillar hypertrophy or exudate. Airway patent. NECK: Trachea midline. Non tender. No meningeal signs CARDIOVASCULAR: Regular rate and rhythm without murmurs, gallops, or rubs. RESPIRATORY: Clear to auscultation. Breath sounds equal bilaterally. No wheezes, rales, or rhonchi. GASTROINTESTINAL: Abdomen soft, non-tender, nondistended. EXTREMITIES: No edema or joint tenderness. BACK: Nontender without deformity or crepitance. No flank tenderness. NEURO: AOx3. SKIN: No rash or erythema of visible areas Initial Vital Signs Initial Vital Signs: Vital Signs Temperature 98.2 F 01/27/22 09:20 Pulse Rate 76 01/27/22 09:20 Respiratory Rate 17 01/27/22 09:20 Blood Pressure 119/73 01/27/22 09:20 Pulse Oximetry 97 01/27/22 09:20 Oxygen Delivery Method 01/27/22 09:20 Course Orders Ordered: ED Orders 01/27/22 10:20 CBC Auto Diff [Complete Blood Count AUTO DIFF] Stat Discontinued Medications Diphenhydramine HCl (Diphenhydramine 50 Mg/Ml Vial) 25 mg IV NOW ONE Stop: 01/27/22 10:05 Last Admin: 01/27/22 10:14 Dose: 25 mg Documented By: TANIA Sodium Chloride (Normal Saline 0.9%) 1,000 mls @ 1,000 mls/hr IV BOLUS ONE Stop: 01/27/22 11:03 Last Admin: 01/27/22 10:15 Dose: 1,000 mls/hr Documented By: TANIA Ketorolac Tromethamine (Ketorolac 30 Mg/Ml Vial) 15 mg IV NOW ONE Stop: 01/27/22 10:05 Last Admin: 01/27/22 10:14 Dose: 15 mg Documented By: TANIA Metoclopramide HCl (Metoclopramide 10 Mg/2 Ml Inj) 10 mg IV NOW ONE Stop: 01/27/22 10:05 Last Admin: 01/27/22 10:14 Dose: 10 mg Documented By: TANIA Vital Signs Vital signs: Vital Signs - 8 hr 01/27/22 09:20 Temperature 98.2 F Pulse Rate 76 Respiratory Rate 17 Blood Pressure 119/73 Pulse Oximetry 97 Oxygen Delivery Method Room Air MDM - Headache Lab Data Result diagrams: 01/27/22 10:20 Labs: Lab Results 01/27/22 Range/Units 10:20 WBC 6.1 (4.5-11.0) X10^3/uL RBC 4.73 (4.0-5.2) X10^6/uL Hgb 13.3 (12.0-16.0) g/dL Hct 39.9 (36-46) % MCV 84.2 (80-100) fL MCH 28.0 (26-34) PG MCHC 33.3 (30-36) % RDW 14.2 (11.6-14.8) % Plt Count 225 (150-400) X10^3/uL Neut % (Auto) 57.9 (50-75) % Lymph % (Auto) 35.1 (25-40) % [place] % (Auto) 4.9 (3-14) % Eos % (Auto) 1.3 L (2-4) % Baso % (Auto) 0.8 (0-2) % Neut # (Auto) 3500 (7122-9183) /uL Lymph # (Auto) 2100 (5108-7971) /uL [place] # (Auto) 300 (0-900) /uL Eos # (Auto) 100 (0-450) /uL Baso # (Auto) 100 (0-100) /uL Point of Care Testing Glucose POC 108 MDM Narrative Medical decision making narrative: Headache considerations include, but not limited to: Subarachnoid hemorrhage, but unlikely as patient denies sudden onset of pain, not worst of life, or neck pain Meningitis considered, but thought unlikely given lack of Brudzinski's, Kernig's sign, altered mental status or fever Giant cell arteritis considered, but thought unlikely given lack of unilateral findings, pain in gnosticist, vision change HTN Emergency considered, but thought unlikely given normal vitals Other serious diagnoses considered unlikely given lack of red flag findings such as sudden onset, increasing frequency, immunocompromise, systemic signs (fever, chills, stiff neck, or rash), focal neurologic findings, trauma, blood thinners, etc. Patient feeling much better after above-stated therapies. Return precautions discussed and questions answered to her apparent satisfaction Discharge Plan Departure Patient Disposition: Home Clinical Impression: Headache, migraine Instructions: DI for Migraine Activity Restrictions/Additional Instructions: *You have been diagnosed with [ Headache ] *What to do: *Take medications as directed *Follow up with your primary care provider in 2-3 days, call for an appointment. Let them know you were seen in the Emergency Department and that we ask that you be seen in follow up *Return to ER if you should have any new, worsening or concerning symptoms, such as [ fever > 101F, neck pain or stiffness, vomiting, confusion, seizure, focal weakness, vision change, speech deficit or other concerning symptoms ] Prescriptions: No Action benzonatate [Tessalon Perles] 100 mg capsule 100 mg PO TID PRN (Reason: cough) Qty: 14 0RF benzonatate 100 mg capsule 100 mg PO BID PRN (Reason: cough) Qty: 20 0RF albuterol sulfate 90 mcg/actuation HFA aerosol inhaler 2 puff inhalation Q6H PRN (Reason: shortness of breath or wheezing) Qty: 6.7 0RF fluoxetine 20 mg capsule 20 mg PO DAILY Qty: 90 3RF albuterol sulfate 90 mcg/actuation HFA aerosol inhaler 2 puff inhalation Q6H PRN (Reason: shortness of breath or wheezing) Qty: 8.5 0RF lamotrigine 200 mg tablet 200 mg PO DAILY Qty: 90 1RF naproxen 500 mg tablet See Rx Instructions .ROUTE .COMPLEX Qty: 60 0RF Dose Instruction: TAKE 1 DTABLET BY MOUTH TWICE A DAY NEEDED FOR PAIN. STOP OTHER NSAIDS. TAKE WITH FOOD Rx Instructions: TAKE 1 DTABLET BY MOUTH TWICE A DAY NEEDED FOR PAIN. STOP OTHER NSAIDS. TAKE WITH FOOD naltrexone 50 mg tablet See Rx Instructions PO .COMPLEX 100 Days Qty: 1 0RF Rx Instructions: Disp compounded 1mg caps Take one cap PO QHS x 7d, then 1 cap BID x 7d then 1 cap QAM + 2 caps QPM x 7d then 2 caps BID x 7d, then 2 caps QAM + 3 caps QPM x 7days, then 3 caps BID thereafter triamcinolone acetonide 0.1 % cream 1 applic topical BID Qty: 45 0RF LDN See Rx Instructions .ROUTE .COMPLEX Qty: 90 3RF Rx Instructions: Start at 0.5 mg twice per day. Increase by 0.5 mg alternating time of day each week for max dosing 16mg BID. valacyclovir 1 gram tablet 1,000 mg PO BID 10 Days Qty: 20 1RF Rx Instructions: Take 1 tab twice daily for oral lesion ondansetron 4 mg tablet,disintegrating 4 mg PO Q8H PRN (Reason: nausea and vomiting) Qty: 12 0RF meclizine [Antivert] 25 mg tablet,chewable 25 mg PO BID PRN (Reason: dizziness) Qty: 14 0RF azithromycin 250 mg tablet See Rx Instructions .ROUTE .COMPLEX Qty: 6 0RF Rx Instructions: take 500 mg today (day 1), then 250 mg for 4 days (days 2-5) Stand Alone Forms: Work Release Note
[2022-01-27] MEDS: METOCLOPRAMIDE 10 MG/2 ML INJ IV (10:14)
[2022-01-27] MEDS: diphenhydrAMINE 50 MG/ML VIAL 25 MG IV (10:14)
[2022-01-27] MEDS: KETOROLAC 30 MG/ML VIAL 15 MG IV (10:14)
[2022-01-27] MEDS: SODIUM CHLORIDE 0.9% 1,000 ML 1000 ML IV (10:15)
[2022-01-27 10:44] LABS: Add Manual Diff / Slide Review NO; Basophils Absolute Auto 100 /uL (0-100); Basophils Percent Auto 0.8 % (0-2); Eosinophils Absolute Auto 100 /uL (0-450); Eosinophils Percent Auto 1.3 % (2-4); Hematocrit 39.9 % (36-46); Hemoglobin 13.3 g/dL (12.0-16.0); Lymphocytes Absolute Auto 2100 /uL (1100-4500); Lymphocytes Percent Auto 35.1 % (25-40); Mean Corpuscular HGB Conc 33.3 % (30-36); Mean Corpuscular Volume 84.2 fL (80-100); Monocytes Absolute Auto 300 /uL (0-900); Monocytes Percent Auto 4.9 % (3-14); Neutrophils Absolute Auto 3500 /uL (1500-7000); Neutrophils Percent Auto 57.9 % (50-75); Platelet Count 225 X10^3/uL (150-400); Red Blood Cell Count 4.73 X10^6/uL (4.0-5.2); Red Cell Distribution Width 14.2 % (11.6-14.8); White Blood Cell Count 6.1 X10^3/uL (4.5-11.0)
[2022-01-27 12:05] VITALS: BP 117/69; PULSE 76; RESP 16; TEMP 37.2; O2SAT 99
== END 2022-01-27 12:08 | disposition home or self-care (01) ==
PROVIDERS: Emergency Provider Emergency Medicine
DX: G43.909 Migraine, unspecified, not intractable, without status migrainosus (principal); R42 Dizziness and giddiness
CPT/HCPCS: 36415; 82962; 85025; 93005; 93010; 96374; 96375; 99284; J1200; J1885; J2765

== ENCOUNTER → 2022-04-21 08:19 | Outpatient (CLI) | payer OTHER, MEDICAID, SELFPAY ==
[2022-04-21 09:25] LABS: Hematocrit 39.9 % (36-46); Hemoglobin 13.3 g/dL (12.0-16.0); Mean Corpuscular HGB Conc 33.3 % (30-36); Mean Corpuscular Volume 84.2 fL (80-100); Platelet Count 269 X10^3/uL (150-400); Red Blood Cell Count 4.74 X10^6/uL (4.0-5.2); White Blood Cell Count 6.6 X10^3/uL (4.5-11.0)
[2022-04-21 10:03] LABS: Alanine Aminotransferase 26 IU/L (<35); Albumin 4.3 g/dL (3.5-5.0); Albumin Globulin Ratio 1.3 (1.0-2.8); Alkaline Phosphatase 75 U/L (38-126); Aspartate Aminotransferase 27 IU/L (14-36); BUN Creatinine Ratio 12.5 (6-22); Bilirubin Total 0.5 mg/dL (0.2-1.3); Blood Urea Nitrogen 10 mg/dL (7-17); Calcium 9.1 mg/dL (8.4-10.2); Carbon Dioxide 29 mmol/L (22-32); Chloride 103 mmol/L (98-107); Cholesterol 198 mg/dL (140-199); Estimated Glomerular Filt Rate > 60 mL/min (>60); Globulin 3.3 g/dL (1.7-4.1); Glucose 114 mg/dL (70-100); HDL Cholesterol 34 mg/dL (40-60); HEMOLYSIS < 15 (0-50); LDL Cholesterol Calculated 106 mg/dL (<100); Potassium 4.2 mmol/L (3.4-5.1); Sodium 138 mmol/L (137-145); Total Protein 7.6 g/dL (6.3-8.2); Triglycerides 290 mg/dL (35-150)
[2022-04-21 10:19] LABS: HCG Quantitative /Beta subunit < 2.4 mIU/mL; Prolactin 26.7 ng/mL (3.0-18.6)
[2022-04-21 10:34] LABS: TSH w/ Reflex to FT4 3.34 uIU/mL (0.47-4.68)
[2022-04-23 14:55] LABS: Estrogen 123 pg/mL (.)
== END ==
PROVIDERS: PCP Family Medicine; Referring Provider Nurse Practitioner Family; Visit Provider Nurse Practitioner Family
DX: E78.2 Mixed hyperlipidemia (principal); N91.2 Amenorrhea, unspecified
CPT/HCPCS: 36415; 80053; 80061; 82672; 83001; 84146; 84443; 84702; 85027

== ENCOUNTER → 2022-12-30 16:27 | Outpatient (CLI) | payer OTHER, MEDICAID, SELFPAY ==
--- NOTE | 2022-12-30 16:28 | DI.RAD.S_ITS ---
PROCEDURE: XR FOOT LT MIN 3V INDICATIONS: Foot pain TECHNIQUE: 3 views of the foot were acquired. COMPARISON: None. FINDINGS: Bones: No fractures or dislocations. No suspicious bony lesions. Soft tissues: No tibiotalar joint effusion. Achilles tendon appears normal. IMPRESSION: No acute radiographic findings. If pain persists, followup imaging in 5-7 days is recommended to exclude occult fracture. Dictated by: Ilana Reina M.D. on 12/30/2022 at 17:05 Approved by: Ilana Reina M.D. on 12/30/2022 at 17:05
== END ==
PROVIDERS: PCP Family Medicine; Referring Provider Nurse Practitioner Family; Visit Provider Nurse Practitioner Family
DX: M79.672 Pain in left foot (principal)
CPT/HCPCS: 73630

== ENCOUNTER 2023-07-12 08:17 | Emergency (ER) | payer OTHER, MEDICAID, SELFPAY ==
[2023-07-12 08:26] VITALS: BP 114/77; PULSE 90; RESP 16; TEMP 36.6; O2SAT 97; BMI 47.5
--- NOTE | 2023-07-12 08:49 | ED.EXTPRO ---
HPI - Extremity Problem General Chief complaint: Extremity Problem,Nontraumatic Stated complaint: rt shoulder pain, tingling on fingers Time Seen by Provider: 07/12/23 08:22 Source: patient Mode of arrival: Ambulatory History of Present Illness HPI Narrative: 38yoF preseents for R shoulder pain since waking up this morning. Patient states I'm old and I slept wrong on it. When she stretched this morning after waking she felt a pop and then pain behind her scapula. No medications taken at home prior to arrival. Initially reported tingling down her R arm after the pop, however none currently Related Data Previous Rx's Medication Instructions Recorded albuterol sulfate 90 mcg/actuation 2 puff inhalation Q6H PRN 04/07/22 aerosol inhaler shortness of breath or wheezing #8.5 grams triamcinolone acetonide 0.1 % 1 applic topical BID #45 grams 12/22/22 topical cream fluoxetine 20 mg capsule 20 mg PO DAILY #90 caps 05/21/23 fluticasone 250 mcg-salmeterol 50 1 inh inhalation BID #60 ea 05/21/23 mcg/dose blistr powdr for inhalation (Advair Diskus) sumatriptan succinate 25 mg tablet See Rx Instructions PO .COMPLEX 05/21/23 #14 tabs lamotrigine 200 mg tablet See Rx Instructions .Route 06/04/23 .COMPLEX #90 tabs naproxen 500 mg tablet See Rx Instructions .Route 06/25/23 .COMPLEX #60 tabs Allergies Allergy/AdvReac Type Severity Reaction Status Date / Time codeine Allergy Severe Rash Verified 06/25/23 14:43 cyclobenzaprine AdvReac Intermediate Altered Verified 06/25/23 14:43 [From FLEXERIL] Mental State methocarbamol AdvReac Intermediate Drowsy Verified 06/25/23 14:43 amoxicillin [From AUGMENTIN] AdvReac Unknown DIARRHEA Verified 06/25/23 14:43 AND STOMACH CRAMPS clavulanic acid AdvReac Unknown DIARRHEA Verified 06/25/23 14:43 [From AUGMENTIN] AND STOMACH CRAMPS Review of Systems Review of Systems Narrative: Reports: Right shoulder pain, right arm tingling Otherwise negative Patient History Medical History (Updated 07/12/23 @ 08:51 by Anny Macario MD) Second degree burn Achrochordon Daytime sleepiness Loud snoring Asthma Thoracic region somatic dysfunction Cervical somatic dysfunction Cranial somatic dysfunction Amenorrhea (08/2021) Lumbar strain Dyshidrotic eczema Food sensitivity with gastrointestinal symptoms Class 3 obesity Mid back pain Evaluation regarding contraception options Acute thoracic back pain Encounter for long-term current use of medication Large breasts Strain of neck muscle Cyst Bipolar disorder URI (upper respiratory infection) Herpes (Unknown) ADD (attention deficit disorder) (Unknown) Anxiety (Unknown) Depression (Unknown) Bipolar disorder (Unknown) Surgical History Hx of tonsillectomy Family History Family/Other Hypertension Dementia Father Loud snoring Mother Loud snoring Sleep apnea Restless leg Obesity Hypertension Depression Anxiety Bipolar disorder Alcohol abuse Family/Other Depression Anxiety Bipolar disorder Social History Smoking Status: Former smoker Tobacco: How many years used: 2 quit status: quit date established second hand exposure: No alcohol intake: current substance use type: marijuana Smoking Status: Former smoker alcohol intake frequency: holidays/special occasions only Substance Use Type: marijuana Exam Initial Vital Signs Initial Vital Signs: Vital Signs Temperature 98 F 07/12/23 08:26 Pulse Rate 90 07/12/23 08:26 Respiratory Rate 16 07/12/23 08:26 Blood Pressure 114/77 07/12/23 08:26 Pulse Oximetry 97 07/12/23 08:26 Oxygen Delivery Method Room Air 07/12/23 08:26 Const: Awake, alert, no acute distress, nontoxic appearing Cardiac: regular rate, regular rhythm RESP: unlabored, clear bilaterally, no wheezing MSK: Atraumatic, full range of motion, pulses equal, palpable muscle spasm behind right scapula Skin: Warm, Dry, intact, no rashes Neuro: AO x3, CN II-XII grossly intact, moves all extremities Psych: affect normal, mood normal, not suicidal, not homicidal Course Orders Ordered: Discontinued Medications Acetaminophen (Acetaminophen 325 Mg Tablet) 975 mg PO NOW ONE Stop: 07/12/23 08:50 Ketorolac Tromethamine (Ketorolac 30 Mg/Ml Vial) 30 mg IM NOW ONE Stop: 07/12/23 08:50 Lidocaine (Lidocaine Patch 1 Each Adh..Patch) 1 each TOP NOW ONE Stop: 07/12/23 08:50 Vital Signs Vital signs: Vital Signs - 8 hr 07/12/23 08:26 Temperature 98 F Pulse Rate 90 Respiratory Rate 16 Blood Pressure 114/77 Pulse Oximetry 97 Oxygen Delivery Method Room Air MDM - Extremity (Nontraumatic) Differential Diagnosis Differential diagnosis: Likely other (sprain, strain, muscle spasm) MDM Narrative Medical decision making narrative: Well-appearing patient with atraumatic shoulder pain. Patient has full range of motion, palpable muscle spasm under right scapula. Neurovascularly intact. No indication for advanced imaging at this time. Patient states that she can not take muscle relaxers due to adverse side effects. Requested a Toradol shot, which was provided as well as Tylenol and a lidocaine patch. Gentle stretching exercises advised, Tylenol and Motrin as needed for pain and discomfort. Discharge Plan Departure Patient Disposition: Home Clinical Impression: Muscle spasm Acute shoulder pain Qualifiers: Laterality: right Qualified Code(s): M25.511 - Pain in right shoulder Instructions: DI for Muscle Spasm Activity Restrictions/Additional Instructions: Take Tylenol and Motrin as needed for pain. You may also apply ice or heat as desired for additional pain control. Use gentle stretching exercises to release muscle tension. Follow up as needed with your primary care physician. Prescriptions: No Action albuterol sulfate 90 mcg/actuation HFA aerosol inhaler 2 puff inhalation Q6H PRN (Reason: shortness of breath or wheezing) Qty: 8.5 4RF triamcinolone acetonide 0.1 % cream 1 applic topical BID Qty: 45 3RF lamotrigine 200 mg tablet See Rx Instructions .ROUTE .COMPLEX Qty: 90 3RF Dose Instruction: take 1 tablet by mouth once daily Rx Instructions: take 1 tablet by mouth once daily fluticasone propion-salmeterol [Advair Diskus] 250-50 mcg/dose blister with device 1 inh inhalation BID Qty: 60 11RF sumatriptan succinate 25 mg tablet See Rx Instructions PO .COMPLEX Qty: 14 1RF Rx Instructions: take 1 tab at onset of headache; if no relief may repeat 1 tab after at least 2 hrs; max = 4 tabs/24 hr PO fluoxetine 20 mg capsule 20 mg PO DAILY Qty: 90 1RF naproxen 500 mg tablet See Rx Instructions .ROUTE .COMPLEX Qty: 60 2RF Dose Instruction: TAKE 1 TABLET BY MOUTH TWICE A DAY NEEDED FOR PAIN. STOP OTHER NSAIDS. TAKE WITH FOOD Rx Instructions: TAKE 1 TABLET BY MOUTH TWICE A DAY NEEDED FOR PAIN. STOP OTHER NSAIDS. TAKE WITH FOOD Referrals: Obed Torre DO [Primary Care Provider] - Stand Alone Forms: Patient Portal/API
[2023-07-12 08:50] VITALS: PULSE 86
[2023-07-12] MEDS: ACETAMINOPHEN 325 MG TABLET 975 MG PO (08:55)
[2023-07-12] MEDS: KETOROLAC 30 MG/ML VIAL IM (08:55)
[2023-07-12] MEDS: LIDOCAINE PATCH 1 EACH ADH..PATCH TOP (08:55)
== END 2023-07-12 09:00 | disposition home or self-care (01) ==
PROVIDERS: Emergency Provider Emergency Medicine; PCP Family Medicine
DX: M62.830 Muscle spasm of back (principal)
CPT/HCPCS: 96372; 99283; J1885

== ENCOUNTER → 2023-11-30 18:32 | Outpatient (CLI) | payer OTHER, MEDICAID, SELFPAY ==
[2023-11-30 19:23] LABS: Influenza A - CEPHEID Flu A NEGATIVE (NEGATIVE); Influenza B - CEPHEID Flu B NEGATIVE (NEGATIVE); Respiratory Syncytial Virus Negative (Negative)
[2023-11-30 19:28] LABS: COVID-19 CEPHEID 4-PLEX PCR Negative (Negative)
== END ==
PROVIDERS: PCP Family Medicine; Visit Provider Physician Assistant Surgical
DX: R05.3 Chronic cough (principal)
CPT/HCPCS: 27400 ×2; 87420; 87635; 0241U; 87880

== ENCOUNTER 2023-12-25 10:31 | Emergency (ER) | payer OTHER, SELFPAY | END 2023-12-25 11:01 | disposition left against medical advice (07) | LOC: ED 11:06 | PROVIDERS: Emergency Provider Emergency Medicine; PCP Family Medicine | DX: R52 Pain, unspecified (principal) ==

== ENCOUNTER → 2024-09-26 10:18 | Outpatient (CLI) | payer OTHER, SELFPAY | PROVIDERS: PCP Family Medicine; Visit Provider Physician Assistant Surgical | DX: J02.9 Acute pharyngitis, unspecified (principal) | CPT/HCPCS: 87070 ==

== ENCOUNTER → 2024-10-27 09:14 | Outpatient (CLI) | payer OTHER, SELFPAY ==
[2024-10-27 10:24] LABS: Add Manual Diff / Slide Review NO; Basophils Absolute Auto 0 /uL (0-100); Basophils Percent Auto 0.6 % (0-2); Eosinophils Absolute Auto 300 /uL (0-450); Eosinophils Percent Auto 4.7 % (2-4); Hematocrit 40.1 % (36-46); Hemoglobin 13.4 g/dL (12.0-16.0); Lymphocytes Absolute Auto 2800 /uL (1100-4500); Lymphocytes Percent Auto 38.9 % (25-40); Mean Corpuscular HGB Conc 33.4 % (30-36); Mean Corpuscular Hemoglobin 27.7 PG (26-34); Mean Corpuscular Volume 83.1 fL (80-100); Monocytes Absolute Auto 400 /uL (0-900); Monocytes Percent Auto 5.4 % (3-14); Neutrophils Absolute Auto 3700 /uL (1500-7000); Neutrophils Percent Auto 50.4 % (50-75); Platelet Count 261 X10^3/uL (150-400); Red Blood Cell Count 4.83 X10^6/uL (4.0-5.2); Red Cell Distribution Width 14.1 % (11.6-14.8); White Blood Cell Count 7.3 X10^3/uL (4.5-11.0)
[2024-10-27 10:44] LABS: Hemoglobin A1C% w Est Avg Glu 5.7 % (4.0-6.0)
[2024-10-27 11:12] LABS: Alanine Aminotransferase 32 IU/L (<35); Albumin 4.4 g/dL (3.5-5.0); Albumin Globulin Ratio 1.7 (1.0-2.8); Alkaline Phosphatase 83 U/L (38-126); Aspartate Aminotransferase 30 IU/L (14-36); BUN Creatinine Ratio 16.4 (6-22); Bilirubin Total 0.5 mg/dL (0.2-1.3); Blood Urea Nitrogen 12 mg/dL (7-17); Calcium 9.4 mg/dL (8.4-10.2); Carbon Dioxide 27 mmol/L (22-32); Chloride 102 mmol/L (98-107); Cholesterol 202 mg/dL (140-199); Estimated Glomerular Filt Rate > 60 mL/min (>60); Globulin 2.6 g/dL (1.7-4.1); Glucose 114 mg/dL (70-100); HDL Cholesterol 40 mg/dL (40-60); HEMOLYSIS < 15 (0-50); LDL Cholesterol Calculated 135 mg/dL (<100); Potassium 4.6 mmol/L (3.4-5.1); Sodium 137 mmol/L (137-145); Triglycerides 134 mg/dL (35-150)
== END ==
PROVIDERS: PCP Family Medicine; Referring Provider Family Medicine; Visit Provider Family Medicine
DX: E66.9 Obesity, unspecified (principal)
CPT/HCPCS: 36415; 80053; 80061; 83036; 84443; 85025

== ENCOUNTER → 2025-04-27 14:19 | Outpatient (CLI) | payer OTHER, SELFPAY ==
--- NOTE | 2025-04-27 14:20 | DI.RAD.S_ITS ---
PROCEDURE: XR FOOT RT MIN 3V INDICATIONS: Heel pain TECHNIQUE: 3 views of the foot were acquired. COMPARISON: Located Within [facility], CR, XR FOOT LT MIN 3V, 12/30/2022, 16:33. FINDINGS: Bones: No fractures or dislocations. No suspicious bony lesions. Plantar calcaneal enthesopathy. Soft tissues: No tibiotalar joint effusion. Achilles tendon appears normal. IMPRESSION: No acute bony abnormality. Dictated by: Neeraj Frost M.D. on 04/30/2025 at 6:25 Approved by: Neeraj Frost M.D. on 04/30/2025 at 6:26
== END ==
PROVIDERS: PCP Family Medicine; Referring Provider Nurse Practitioner Family; Visit Provider Nurse Practitioner Family
DX: M79.671 Pain in right foot (principal)
CPT/HCPCS: 73630

== ENCOUNTER → 2025-07-09 17:51 | Outpatient (CLI) | payer OTHER, SELFPAY ==
--- NOTE | 2025-07-09 17:52 | DI.MG.S_ITS ---
MM screening mammo BI: 07/09/2025. BI-RADS: 1 CLINICAL: 40-year old female for bilateral screening mammogram. Tyrer-Cuzick lifetime risk of 6.1%. No personal or first-degree family history of breast cancer. PRIOR EXAMS: No prior examinations available. MAMMOGRAPHY TECHNIQUE: 2D and 3D (tomosynthesis) digital mammographic views obtained, with additional images as needed for full coverage. Current study was also evaluated with a Computer Aided Detection (CAD) system. DENSITY A. The breasts are almost entirely fatty. MAMMOGRAPHY FINDINGS Bilateral: No suspicious mass, asymmetry, microcalcification, or other abnormality seen. IMPRESSION: * No evidence of malignancy. RECOMMENDATIONS Bilateral * Annual screening mammography. OVERALL ASSESSMENT CATEGORY BI-RADS-1: Negative. The [employer] recommends annual screening mammography beginning at age 40 for women with average risk of breast cancer. ELECTRONICALLY SIGNED: Vu Lagos M.D. on 07/09/2025 at 10:08:57 PM PT Interpreting Station ID: [id number]
== END ==
LOC: MAMMO 17:51
PROVIDERS: PCP Family Medicine; Referring Provider Family Medicine; Visit Provider Family Medicine
DX: Z12.31 Encounter for screening mammogram for malignant neoplasm of breast (principal); R92.313 Mammographic fatty tissue density, bilateral breasts
CPT/HCPCS: 77063; 77067